=== PATIENT | male | born 1950 | race African-American/Black ===

== ENCOUNTER 2017-12-16 11:52 | Outpatient (CLI) | payer MEDICARE, MEDICAID ==
--- NOTE | 2017-12-16 14:56 | MRI ---
MRI LUMBAR SPINE WITHOUT CONTRAST: 12/16/17 HISTORY: M54.16 - radiculopathy lumbar region. Pain. T89.4 - chronic pain syndrome. COMPARISON: None. FINDINGS: There is Modic type I end plate changes at L4 and L5 and S1. Levels are as follows: L1-2: Normal discs. No neural foraminal or spinal canal narrowing. L2-3: Normal discs. Mild facet arthrosis. No neural foraminal or spinal canal narrowing. L3-4: Mild disc desiccation. There is mild facet arthrosis. No neural foraminal or spinal canal narro wing. L4-5: Mild disc desiccation. There are bilateral low grade femoral and posterior disc osteophyte comp krish. Moderate bilateral neural foraminal narrowing. Mild facet arthrosis. L5-S1: There is anterior annular fissure. There is moderate facet arthropathy. Bilateral subforamina l posterior disc osteophyte complexes. There is also a left paracentral and lateral recess posterior disc protrusion with edema deep to the posterior longitudinal ligament. There appears to be a large a nterior osteophyte complex at L5-S1. Anterior annular fissure is present. IMPRESSION: Abnormal anterior epidural edema at L5-S1 with posterior disc osteophyte complex and left paracentral posterior disc protrusion. Anterior annular fissure also present. There is also extensive anterior e xuan at L5 vertebral body. Underlying discitis/osteomyelitis felt less likely. There is moderate to s evere bilateral L5-S1 degenerative neural foraminal narrowing due to posterior disc osteophyte comple xes and facet arthrosis including abutment of the exiting and traversing nerve roots. POS: BETH
== END 2017-12-16 11:53 | disposition home or self-care (01) ==
LOC: MRI 11:52
DX: M54.16 Radiculopathy, lumbar region (principal); G89.4 Chronic pain syndrome; M51.37 Other intervertebral disc degeneration, lumbosacral region; M99.83 Other biomechanical lesions of lumbar region; M47.897 Other spondylosis, lumbosacral region; M25.78 Osteophyte, vertebrae; R60.0 Localized edema; Z79.899 Other long term (current) drug therapy
CPT/HCPCS: 72148

== ENCOUNTER 2018-09-18 17:58 | Inpatient (IN) | payer MEDICARE, MEDICAID ==
[~2018-09-18 17:58] MED LIST: ISOVUE-370 76%-LOCM 1 ML ONE
--- NOTE | 2018-09-18 18:39 | RAD ---
Exam:Right hip 2 views HISTORY: Pain. COMPARISON: 12/24/2005 FINDINGS: The contour of the femoral head is maintained. Joint spaces preserved. There appears to be bony hypertrophy at the greater trochanter. Findings may be due to remote injury or enthesopathic change. If there is focal pain in this region, further evaluation with CT or MRI can be performed. IMPRESSION: 1. No obvious fracture. 2. Irregularity involving the right greater trochanter. Recommendations as above
[2018-09-18] MEDS ORDERED: Fentanyl 100 MCG/2 ML VIAL ONE ×2 (19:12→20:44)
[2018-09-18 19:21] LABS: Hemoglobin 10.9 g/dL (14.0-18.0); Mean Corpuscular HGB CONC 30.4 g/dL (32.0-36.0); Mean Corpuscular Hemoglobin 23.5 pg (27.0-31.0); Mean Corpuscular Volume 77.2 fL (78.0-98.0); Mean Platelet Volume 7.7 fL (7.4-10.4); Platelet Count 386 thou/uL (130-400); RBC Distribution Width 16.3 % (11.5-14.5); Red Blood Cell (RBC) Count 4.65 mill/uL (4.70-6.10); White Blood Cell (WBC) Count 22.7 thou/uL (4.8-10.8)
[2018-09-18 19:42] LABS: ALT (SGPT) 7 U/L (8-55); AST (SGOT) 12 U/L (5-34); Albumin 4.1 g/dL (3.4-4.8); Alkaline Phosphatase 100 U/L (40-150); Anion Gap 16 mmol/L (10-20); BUN (Urea Nitrogen) 13 mg/dL (8.4-25.7); Bilirubin, Total 0.4 mg/dL (0.2-1.2); Calc. Creatinine Clearance 0 mL/min (70-130); Calcium 9.5 mg/dL (7.8-10.44); Carbon Dioxide 16 mmol/L (23-31); Chloride 106 mmol/L (98-107); Estimated GFR-MDRD 42; Glucose 179 mg/dL (80-115); Protein, Total 8.1 g/dL (5.8-8.1); Sodium 134 mmol/L (136-145)
[2018-09-18 19:44] LABS: Band 16 % (5-11); Lymphocytes 5 % (21-51); MDiff Complete? YES; Monocytes 2 % (0-10); Neutrophil 77 % (42-75)
--- NOTE | 2018-09-18 20:04 | CT ---
Exam: CT angiogram of the abdominal aorta with bilateral lower extremity runoff HISTORY: Right-sided hip pain. Possible occult right hip fracture. Cold foot. Evaluate for vascular o cclusion. TECHNIQUE: CT angiogram of the abdominal aorta and bilateral extremity runoff is performed in the axi al plane. Three-dimensional reformatted images are submitted for interpretation. FINDINGS: Abdomen CT: Lung bases are clear. Normal heart size. There is appropriate arterial phase enhancement of the liver, spleen, pancreas and adrenal glands. Up per normal pancreatic duct is unchanged. Symmetric enhancement kidneys. Bilaterally no obstructive uropathy. No gastrohepatic, retrocrural or periportal lymphadenopathy. No mesenteric mass, lymphadenopathy, free air or free fluid. Limited evaluation of the alimentary canal due to lack of oral contrast. Slightly prominent proximal small bowel loops are noted. Distal small bowel loops are decompressed. Ileocecal junction is unremarkable. Normal caliber appendix. Diverticulosis in the left hemicolon, without evidence of dive rticulitis. CT PELVIS: There is complex fluid in the pelvis with attenuation coefficient of 26 Hounsfield units. Unremarkable urinary bladder. There are no acute abnormalities with regards to the osseous structures. There are chronic changes in volving the right greater trochanter compared to the most recent previous CT angiogram with bilateral lower extremity runoff. CT angiogram of the aorta: There is a nonaneurysmal descending thoracic aorta. There is atheroscleros is with a combination of calcified and noncalcified plaque in the abdominal aorta. The aortic bifurcation is unremarkable. There is atherosclerosis with short segment moderate stenosis involving the celiac artery origin. The superior mesenteric artery is patent. There is a single right and 2 left renal arteries, which are patent. Mild atherosclerosis in the larger left renal artery origin. T here is nonvisualization of the proximal inferior mesenteric artery. There was opacification of the previous examination. Significant stenosis of the proximal inferior mesenteric artery is suspected. Atherosclerosis of both common iliac arteries without evidence of high-grade occlusion. There is athe rosclerosis in proximal bilateral external iliac arteries with mild right and moderate left narrowing. There is complete occlusion of the right external iliac artery just prior to its exiting the inguinal region. There does appear to be recanalization at the level of the common femoral artery via collateral flow. There is atherosclerosis with moderate narrowing of the right common femoral artery. Right lower extremity: Atherosclerosis of the right common femoral artery. There is short segment mil d narrowing of the proximal superficial femoral artery. Multi segmented mild narrowing is noted throughout the right superficial femoral artery and popliteal artery. There is occlusion of the dista l popliteal artery at the level of the knee. There does appear to be partial opacification of the peroneal and posterior tibial artery, via collateral flow. Evaluation of the peroneal and posterior t ibial artery is limited. Multifocal short segment disease is suspected. Left lower extremity: There is complete occlusion of the left common femoral artery. The left profund a femoral artery demonstrates multisegment moderate stenosis distally. There is an occluded stent along the course of the left superficial femoral artery. There is recanalization with evidence of bel w in a short segment of the popliteal artery. There is long segment moderate narrowing just beyond this area of recanalization. There is patency of the left popliteal artery. Arterial calcification is patent. The intervertebral artery does not demonstrate any significant opacification. There is multifocal disease involving the peroneal artery and posterior tibial artery. IMPRESSION: 1. Extensive atherosclerotic disease involving the left and right lower extremity as described above. Consultation with vascular surgery/cardiology is recommended to perform a conventional runoff to further assess overall degree of significant atherosclerotic disease, vascular occlusion and stenosis in both lower extremities. 2. No evidence of opacification with regards to the proximal aspect of the inferior mesenteric artery . There does not appear to be any edema in the bowel along the inferior mesenteric artery distribution. However, there do appear to be dilated loops of proximal small bowel with bowel wall t hickening. Correlate for enteritis. 3. Complex fluid in the pelvis which is atypical for a male patient 4. Chronic changes in the right greater trochanter. Transcribed Date/Time: 09/18/2018 8:30 PM
[2018-09-18 20:07] LABS: INR-International Normal Ratio 1.1
[2018-09-18 20:24] LABS: PTT 20.4 SEC (22.9-36.1)
[2018-09-18 21:19] LABS: Bilirubin Negative (Negative); Blood, Urine Negative (Negative); Clarity Clear (Clear); Glucose, Urine (Dipstick) Normal (Negative); Leukocyte Negative Leu/uL (Negative); Nitrite Negative (Negative); Protein, Urine (Dipstick) 20 mg/dL (Neg-Trace); Urobilinogen Normal mg/dL (Less than 2)
[2018-09-18 23:09] LABS: #Monocytes 0.7 thou/uL (0.11-0.59); #Neutrophils 18.8 thou/uL (1.40-6.50); %Eosinophils 0.2 % (0.0-10.0); %Lymphocytes 4.9 % (21.0-51.0); %Monocytes 3.4 % (0.0-10.0); %Neutrophils 91.4 % (42.0-75.0); Hemoglobin 10.4 g/dL (14.0-18.0); Mean Corpuscular HGB CONC 30.4 g/dL (32.0-36.0); Mean Corpuscular Hemoglobin 23.6 pg (27.0-31.0); Mean Corpuscular Volume 77.5 fL (78.0-98.0); Mean Platelet Volume 8.4 fL (7.4-10.4); Platelet Count 347 thou/uL (130-400); RBC Distribution Width 16.3 % (11.5-14.5); Red Blood Cell (RBC) Count 4.42 mill/uL (4.70-6.10); White Blood Cell (WBC) Count 20.5 thou/uL (4.8-10.8)
[2018-09-19] MEDS ORDERED: Piperacillin/Tazobactam 3.375 GM VIAL ONE (00:24)
[2018-09-19 01:40] LABS: Lactic Acid 1.9 mmol/L (0.5-2.2)
[2018-09-19] MEDS: Sodium Chloride 0.45% 1,000 ML IV SCH ×2 (01:45→10:02)
--- NOTE | 2018-09-19 01:51 | CON ---
DATE OF CONSULTATION: 09/18/2018 HISTORY OF PRESENT ILLNESS: I was called to see Mr. Dale this evening with the report he was having acute leg ischemic pain. He has a history of left leg intervention in 2017 with superficial femoral and popliteal artery angioplasty and stenting. On my arrival, the patient is watching television, propped up on the stretcher with his major complaint being no one has let him to have anything to drink since he has been there. When questioned on his current situation and why he came to the emergency department, he states that he has had pain for over 2 months in his right leg. When asked where in his right leg, he points to his hip, ankle, and occasionally to his calf. He has had no temperature change in his leg. His left leg is the limiting factor on his walking distance of approximately 2 blocks. He has no true rest pain. He has had no tissue loss. CT angiogram was performed prior to my arrival. This shows aorta and iliac vessels to be fairly clear. There is one area of the left common iliac artery that has some atherosclerosis, but it is non-flow limiting. On the left, the common femoral is widely patent. Superficial femoral is occluded just distal to its takeoff. It reconstitutes below the knee via profunda collaterals. The runoff is difficult to ascertain on the CT angiogram. On the right, the common femoral artery is occluded for a very short segment at the inguinal ligament. There is good superficial femoral, profunda, popliteal flow down to below the knee, but again runoff is difficult to ascertain due to contrast limit. The patient continues to smoke approximately a pack of cigarettes a day. He is not taking any medications at home on a regular basis. He has had no followup with Dr. Parks since 2017, due to the patient's not feeling it was necessary to come in. PAST MEDICAL HISTORY: Peripheral vascular disease. PAST SURGICAL HISTORY: Left hand surgery. HOME MEDICATIONS: None. ALLERGIES: NONE. SOCIAL HISTORY: He smokes a pack of cigarettes a day. He drinks alcohol daily. He has some obvious encephalopathy. REVIEW OF SYSTEMS: Not performed other than as above. PHYSICAL EXAMINATION: GENERAL: This is a thin elderly appearing gentleman, resting comfortably in the emergency department. VITAL SIGNS: His pulse is 60 and regular. He has sinus rhythm on the monitor. He has no history of atrial fibrillation. Blood pressure is 130/72. HEENT: Sclerae nonicteric. NECK: Supple without adenopathy. He has no carotid bruits. CHEST: Clear bilaterally. HEART: Rhythm is regular without murmur. ABDOMEN: Soft and nontender. EXTREMITIES: Equal in temperature bilaterally. On the left common femoral artery, pulses palpable. He has a soft monophasic posterior tibial Doppler signal. On the right, I cannot palpate his femoral pulse. Posterior tibial pulse has a soft monophasic Doppler signal. ASSESSMENT AND PLAN: This is a chronic peripheral vascular problem. He does not need to be admitted to the hospital nor undergo any acute therapy. I will have him follow up at the soonest available time with Dr. Parks. He will more than likely have discussion with him regarding his right common femoral artery since that maybe the inflow issue with his right leg. On the left side, he would require a fem below-knee popliteal bypass, but I am not sure if that is indicated at this point. Job ID: [id number] MTDD
[2018-09-19 02:34] VITALS: BMI 22.8
[2018-09-19] MEDS ORDERED: diphenhydrAMINE 25 MG CAP PO SCH (02:45)
[2018-09-19] MEDS ORDERED: Ondansetron PF 4 MG/2 ML Vial IVP PRN (02:46)
[2018-09-19] MEDS ORDERED: HYDROcodone/Acetaminophen 5/325 mg Tablet PO PRN ×5 (02:46→17:00)
[2018-09-19] MEDS ORDERED: Ondansetron ODT 4 MG TAB SL PRN (02:46)
[2018-09-19] MEDS: Piperacillin/Tazobactam 3.375 GM in Sodium Chloride 0.9% 100 ML IVPB SCH ×3 (05:09→18:16)
[2018-09-19] MEDS ORDERED: Lisinopril 20 MG TAB PO SCH ×2 (15:00→19:45)
[2018-09-19] MEDS: cloNIDine 0.1 MG TAB PO PRN (19:50)
--- NOTE | 2018-09-19 21:48 | HP ---
CHIEF COMPLAINT: Right leg pain. HISTORY OF PRESENT ILLNESS: Mr. Dale is a 68-year-old male with past medical history for peripheral vascular disease, hepatitis C, hypertension, came because of right leg pain, sudden onset of 2 days. The patient also had this pain going from right hip to right knee as well as the calf area. Pain was severe and was unable to ambulate because of the pain. Also noticed he had diarrhea. He had a lactose intolerance and had watery stools. In the right leg, he felt like it is cold and there is no circulation in the leg and the pain gets worse on ambulation. So, the patient decided to come to the hospital because of severe pain in the right leg, also had diarrhea. In the ER, the patient was evaluated initially, thought to have acute ischemia of the right leg, so Vascular Surgery was consulted. The patient is seeing Dr. Skaggs and he felt the patient has chronic disease in both legs and needs a followup as an outpatient. In view of his possible enteritis and also there is some fluid in the pelvis on CT scan with leukocytosis, the patient is admitted for further evaluation and management. The patient was given a dose of vancomycin and Zosyn. The ER physician felt that complex fluid in the pelvis could be abscess, so that is the reason for admission and further evaluation. The patient does not have any fever. PAST MEDICAL HISTORY: 1. Hypertension. 2. Peripheral vascular disease. 3. History of hepatitis C, treated passively. 4. Status post left hand surgery. CURRENT MEDICATIONS: The patient is on: 1. Lisinopril 20 mg daily. 2. Plavix 75 mg daily. 3. Aspirin 81 mg daily. ALLERGIES: NKDA. FAMILY HISTORY: Nothing contributory. SOCIAL HISTORY: The patient lives alone. Smokes one pack a day and drinks alcohol almost daily. REVIEW OF SYSTEMS: CARDIOVASCULAR: No chest pain. No shortness of breath. RESPIRATORY: No fever or cough. GASTROINTESTINAL: Has diarrhea and watery stools. No vomiting. CENTRAL NERVOUS SYSTEM: No headache or dizziness. PHYSICAL EXAMINATION: GENERAL: The patient is alert, awake, oriented x3. VITAL SIGNS: Temp 98, pulse 87, respirations 20, blood pressure 130/70. HEENT: Head is normocephalic and atraumatic. Pupils are equal and reactive. Nasopharynx is pale and dry. Hard and soft palate, no lesions. Skin turgor decreased. NECK: Supple. No JVD. LUNGS: Bilateral air entry. No rales. No rhonchi. HEART: S1 and S2 regular. ABDOMEN: Soft. No distention. No tenderness. No organomegaly. Bowel sounds present. RECTAL: Deferred. CENTRAL NERVOUS SYSTEM: No focal deficit. LABORATORY DATA: CBC shows WBC 22.7, hemoglobin 10, hematocrit 35, platelets 386. Metabolic panel; sodium 134, potassium 4, chloride 106, CO2 16, BUN 13, creatinine 1.9, glucose 179. Lactic acid 4.7. Prothrombin time 14, INR 1. Urinalysis negative. IMAGING STUDIES: Chest x-ray negative. Hip x-ray negative. CT angio had bilateral runoff revealed peripheral vascular disease and complex fluid in the pelvis. ASSESSMENT: 1. Peripheral vascular disease, right leg pain. 2. Leukocytosis and complex fluid in the pelvis, rule out infection. 3. Enteritis. 4. Hypertension. 5. Hepatitis C, treated. PLAN: 1. Vital signs q.4 hours. 2. Activities as tolerated. 3. Diet, regular. 4. Allergies, NKDA. 5. Zosyn 3.375 g IV piggyback q.6 hours. 6. Continue home medications. 7. CBC basement in the morning. 8. CT scan of the abdomen and pelvis in a.m. Job ID: [id number]
[2018-09-20] MEDS: Piperacillin/Tazobactam 3.375 GM in Sodium Chloride 0.9% 100 ML IVPB SCH ×4 (00:02→17:09)
[2018-09-20 06:51] LABS: Anion Gap 9 mmol/L (10-20); BUN (Urea Nitrogen) 10 mg/dL (8.4-25.7); Calc. Creatinine Clearance 71 mL/min (70-130); Calcium 8.4 mg/dL (7.8-10.44); Carbon Dioxide 21 mmol/L (23-31); Chloride 110 mmol/L (98-107); Estimated GFR-MDRD 81; Glucose 98 mg/dL (80-115); Potassium 3.6 mmol/L (3.5-5.1); Sodium 136 mmol/L (136-145)
[2018-09-20] MEDS: Aspirin 81 mg Enteric Coated Tablet PO SCH (08:39)
[2018-09-20] MEDS: Clopidogrel Bisulfate 75 MG TAB PO SCH (08:39)
[2018-09-20 08:56] LABS: #Eosinphils 0.3 thou/uL (0.0-0.7); #Lymphocytes 2.9 thou/uL (1.20-3.40); #Monocytes 0.8 thou/uL (0.11-0.59); #Neutrophils 5.4 thou/uL (1.40-6.50); %Basophils 0.3 % (0.0-1.0); %Eosinophils 3.1 % (0.0-10.0); %Lymphocytes 30.7 % (21.0-51.0); %Monocytes 8.3 % (0.0-10.0); %Neutrophils 57.6 % (42.0-75.0); Hemoglobin 7.9 g/dL (14.0-18.0); Mean Corpuscular HGB CONC 30.1 g/dL (32.0-36.0); Mean Corpuscular Hemoglobin 23.8 pg (27.0-31.0); Mean Corpuscular Volume 79.1 fL (78.0-98.0); Mean Platelet Volume 8.1 fL (7.4-10.4); Platelet Count 261 thou/uL (130-400); RBC Distribution Width 16.1 % (11.5-14.5); Red Blood Cell (RBC) Count 3.32 mill/uL (4.70-6.10); White Blood Cell (WBC) Count 9.4 thou/uL (4.8-10.8)
[2018-09-20] MEDS ORDERED: Lisinopril 20 MG TAB PO SCH (09:00)
--- NOTE | 2018-09-20 09:36 | CT ---
EXAM: Abdomen and pelvic CT scan with contrast: HISTORY: Right hip pain, abdominal pain, diarrhea, follow-up pelvic fluid COMPARISON: CT angiogram abdomen, 09/18/2018 FINDINGS: The previously noted fluid in the pelvis on the prior CT angiogram of the abdomen is no longer eviden t on today's study. Minimal right pleural fluid/pleural thickening. Liver: Unremarkable. Gallbladder:Small contracted gallbladder. Pancreas:Unremarkable Spleen:Unremarkable. Adrenal glands:Unremarkable. Kidneys:No renal calculus or acute obstruction.No solid or cystic mass. No evidence for bowel obstruction. No CT evidence for acute appendicitis. The urinary bladder is unremarkable. No abscess, adenopathy, or abnormal fluid collection within the abdomen or pelvis. IMPRESSION: No significant acute process in the abdomen or pelvis. Small right pleural effusion/pleural thickenin g. Previously noted fluid in the pelvis seen on prior CT angiogram of the abdomen is no longer evident on today's study.
[2018-09-20 10:57] LABS: Amphetamine Not Detected (NotDetected); Barbiturates Screen Not Detected (NotDetected); Benzodiazepine Screen Not Detected (NotDetected); Cocaine Metabolite Screen Detected (NotDetected); Medtox Control Line Valid? VALID (VALID); Medtox Reader # READER 4; Methadone Not Detected (NotDetected); Methamphetamine Not Detected (NotDetected); Opiate Screen Detected (NotDetected); Oxycodone Screen Not Detected (NotDetected); Phencyclidine (PCP) Not Detected (NotDetected); THC/Cannabinoid Screen Not Detected (NotDetected); Tricyclic Screen Not Detected (NotDetected)
--- NOTE | 2018-09-20 19:09 | CON ---
DATE OF CONSULTATION: 09/20/2018 REASON FOR CONSULTATION: Neutrophilia, peripheral vascular disease, diarrhea. HISTORY OF PRESENT ILLNESS: A 68-year-old patient. Last admission in the hospital is registered for October 2016, when the patient presented with left hand weakness and numbness. MRI did not show an infarct. In November 2016, the patient had abdominal aortogram, which showed mild aortoiliac disease with no plaquing, diffuse disease in the left superficial femoral artery with occlusion of the proximal 3rd and reconstitution at the popliteal artery. The patient states that he had a balloon with stent to the left lower extremity by Dr. Parks, but I do not find the documentation of that procedure in the record. He also has a history of hepatitis C, which may have been treated, hypertension, and he has had intermittent claudication for the past year, and over the past few days, developed worsening pain in the right lower extremity associated with numbness and inability to bear weight. He was brought to the hospital by EMS and has been admitted. The pain has improved since. He was evaluated by Dr. Skaggs, and he had a CT angio with runoff on 09/18, and this demonstrated extensive disease in the left and right lower extremity. There was no evidence of opacification in the proximal aspect of the inferior mesenteric artery, and also a complex fluid was described in the pelvis. The patient had a repeat abdomen and pelvis CT to evaluate the fluid in the pelvis, and this showed no abnormal findings, so we did not confirm the serendipitous CT angiogram finding. The patient had some diarrhea, which he blames on drinking milk with cereal a few days before, since he has lactose intolerance. Currently, he is awake. Denies headaches. No visual symptoms, sore throat, odynophagia, or dysphagia. No cough or sputum production. No chest pain. No dental pain. No back pain. No abdominal pain and voiding without difficulty, still with some loose stool intermittently. The pain in lower extremities has improved. He is able to bear weight. PAST MEDICAL HISTORY: Peripheral vascular disease; hypertension; hepatitis C, which apparently was treated; left hand surgery. MEDICATION LIST: Lisinopril, Plavix, and aspirin. Currently, 1. [place]. 2. Ecotrin. 3. Catapres. 4. Plavix. 5. Zestril. 6. Zosyn. ALLERGIES: NONE. FAMILY HISTORY: Noncontributory. SOCIAL HISTORY: Still smoking and drinks daily alcoholic beverages. He used to work in construction up until 2017. PHYSICAL EXAMINATION: VITAL SIGNS: T-max 98.2, blood pressure 170/73, pulse 58, respirations 18, O2 saturation 97. SKIN: No areas of skin breakdown. The patient has a peripheral IV access and is voiding in the toilet. No lymphadenopathy. HEENT: Ocular movements conjugate. Sclerae white. Pupils are equal. Oral cavity with no remaining [place] teeth in place. NECK: Supple. No jugular vein distention. No carotid bruits. LUNGS: With expiratory wheezing, right and left hemithorax. HEART: S1 and S2. Regular rate. ABDOMEN: Soft, not distended or tender. No ascites. No bladder distention. EXTREMITIES: No joint inflammatory activity. I could not feel any popliteal or dorsalis pedis/posterior tibialis pulses in either extremity. Plantar responses are flexor. Strength is preserved in the lower extremities and upper extremities. Cognitive function appears to be intact. LABORATORY DATA: White cell count 22.7, down to 9.4; hemoglobin down from 10.9 to 7.9; MCV 79, and platelets 261 with a normal differential. INR 1.1. Creatinine 1.1, which is improved from admission. Urinalysis was normal. The toxicology with some cocaine metabolites. Microbiology with two sets out of two with coagulase negative Staph likely contaminant of the sample joint process. ASSESSMENT: 1. Peripheral vascular disease with prior intervention, left side, now with intermittent claudication for about a year now with worsening pain and inability to ambulate for the three days before admission. The amount of obstruction and the clinical findings were deemed to not require emergency intervention by vascular surgeon. The patient has been referred to Dr. Parks in the outpatient setting. 2. Marked neutrophilia with bandemia of unclear etiology. 3. Abnormal lung exam. DISCUSSION: The differential diagnosis includes the acute ischemia of lower extremities, which led to probably severe ischemia of the muscles, which was transient and improved over time. This must have had re-precautions in terms of release of cytokine as that caused the leukocytosis with left shift. The clinical exam and the CT scan of the abdomen argue against an acute intraabdominal ischemic event such as ischemic colitis for example. He is at risk for such in the future. He does have mild wheezing in the right and left lungs, probably related to his ongoing smoking habit and underlying chronic bronchitis. I do not think there is enough evidence to suggest an infection in the respiratory tract. At this point, we will discontinue antimicrobial therapy and follow clinical course. He does have a quite significant drop in the hemoglobin, and we will have to continue monitoring and make sure that it stabilizes prior to discharge planning. He may display gastrointestinal hemorrhage going forward. We will see how he does. Job ID: [id number]
[2018-09-20] MEDS: Lisinopril 20 MG TAB PO SCH ×3 (21:00→23:36)
[2018-09-21] MEDS: cloNIDine 0.1 MG TAB PO PRN ×3 (01:07→23:53)
--- NOTE | 2018-09-21 01:36 | CON ---
DATE OF CONSULTATION: 09/20/2018 REQUESTING PHYSICIAN: Michael Sena MD REASON FOR CONSULTATION: Possible pelvic phlegmon on CT scan. HISTORY OF PRESENT ILLNESS: Hayden Dale is a 68-year-old man with a history of tobacco abuse and severe peripheral vascular disease. He was seen in the GI outpatient setting by my colleague, Dr. Dallin Dumas in the past. He had a colonoscopy just a couple of years ago in 2017 showing left-sided diverticulosis and a single small polyp removed at that time. He has a history of hepatitis C genotype 1 and genotype 4, and received 12 weeks of Epclusa in late 2016, but was lost to follow up after that and did not really present for any of the followup labs. He has no chronic gastrointestinal symptoms. He presented to the hospital and was admitted yesterday initially with concern for acute arterial ischemia of the right lower extremity. He was seen by Dr. Skaggs, whose impression was that there was no urgent intervention needed and that this was more of a chronic vascular problem. He had a CT angiogram with runoff performed on admission 2 nights ago, and this was notable for extensive atherosclerotic disease of the bilateral lower extremities. No opacification of the inferior mesenteric artery, though there was no edema in the bowel along that distribution. There was some proximal small bowel wall thickening. There was also some complex fluid in the pelvis. The patient underwent repeat CT of the abdomen and pelvis this morning, and this really showed no acute abnormalities. There was no pelvic fluid collection evident on today's exam, no evidence of bowel inflammation or obstruction. The patient denies any abdominal pain, nausea, or vomiting. He is tolerating his regular diet well. He does say that over the past 3 to 4 days, he has been having diarrhea. He describes this as dark stool with no red blood. He has had about 7 bowel movements today. He has been hemodynamically stable. Labs this morning did show a downtrend in hemoglobin from 10.4 on admission down to 7.9. This is in conjunction with significant decline in WBC and platelets as well. PAST MEDICAL HISTORY: 1. Hypertension, peripheral vascular disease, hepatitis C, genotype 1 and 4, treated with 12 weeks of Epclusa in January 2017, lost to follow up since then. 2. Status post left hand surgery. 3. Left-sided diverticulosis. 4. Colon polyp, removed on colonoscopy 2016. OUTPATIENT MEDICATIONS: 1. Lisinopril. 2. Plavix. 3. Aspirin 81 mg daily. ALLERGIES: NO KNOWN DRUG ALLERGIES. FAMILY HISTORY: Noncontributory. SOCIAL HISTORY: The patient lives alone. He continues to smoke 1 pack a day and he drinks alcohol almost daily. REVIEW OF SYSTEMS: The patient states that his leg is currently feeling a lot better. It is warm to the touch. Otherwise, full review of systems including constitutional, head, eyes, ears, nose, throat, GI, , cardiovascular, respiratory, musculoskeletal, neurologic systems is negative except as noted in the HPI. PHYSICAL EXAMINATION: VITAL SIGNS: Temperature 98.4, pulse 61, blood pressure 160/76, oxygen saturation 97% on room air. GENERAL: A 68-year-old man sitting up in bed comfortably, in no distress. SKIN: A bit pale. No jaundice. No rashes were palpable. EYES: No scleral icterus. Extraocular movements intact. ENT: Mucous membranes moist. No oral lesions. LYMPH: No submandibular or supraclavicular lymphadenopathy. ENDOCRINE: Thyroid nontender to palpation. HEART: Regular rate and rhythm. LUNGS: Clear to auscultation bilaterally. ABDOMEN: Flat. Bowel sounds present. Soft and nontender to deep palpation throughout the abdomen. No guarding or rebound tenderness. EXTREMITIES: No peripheral edema. The lower extremities are warm to the touch. NEUROLOGIC: Cranial nerves 2 through 12 intact bilaterally. No focal deficits. LABORATORY STUDIES: Hemoglobin initially 10.9, now down to 7.9, WBC initially 22.7, now down to 9.4, platelets initially 386, now down to 261. INR is 1.1. Sodium 136, potassium 3.6, BUN only 10, creatinine initially 1.95, now down to 1.1. Lactic acid initially 4.7, now down to 2.0. CRP 1.21. IMAGING STUDIES: Initial CT angiogram from 09/18/2018, as well as repeat CT of the abdomen and pelvis 09/20/2018 as detailed in the HPI. ASSESSMENT AND PLAN: 1. Abnormal CT scan, showing possible pelvic fluid collection. This was demonstrated on initial CT scan on 09/18/2018. However, repeat CT scan from this morning demonstrated no pelvic fluid collection. This is either a very transient process, or more likely, imaging artifact. The patient certainly has no lower abdominal discomfort. No evidence of acute abdomen. 2. Acute diarrhea. This has been going on over the past 3 to 4 days. It likely represents acute viral infectious gastroenteritis. Expect resolution over the next couple of days. There was suggestion of some proximal small bowel enteritis on the initial scan not as evident on the repeat scan. 3. Anemia. He has had significant hemoglobin decline from 10.4 to 7.9 over the course of this admission. However, he has had no evidence of overt bleeding. He does say the stools are a bit dark, however. We would stick with the plan to monitor H and H tomorrow. If significant further decline, then EGD could be considered. 4. History of hepatitis C, status post treatment with Epclusa x12 weeks in late 2017. The patient failed to follow up outpatient for this. He can follow up on an outpatient basis with Dr. Dumas for repeat viral load, etc. Thank you for the consultation. Please call anytime with questions or concerns. Job ID: [id number]
[2018-09-21 05:58] LABS: #Eosinphils 0.4 thou/uL (0.0-0.7); #Lymphocytes 3.3 thou/uL (1.20-3.40); #Monocytes 0.7 thou/uL (0.11-0.59); #Neutrophils 4.4 thou/uL (1.40-6.50); %Basophils 0.3 % (0.0-1.0); %Eosinophils 4.4 % (0.0-10.0); %Lymphocytes 37.9 % (21.0-51.0); %Monocytes 7.4 % (0.0-10.0); %Neutrophils 50.1 % (42.0-75.0); Hemoglobin 7.8 g/dL (14.0-18.0); Mean Corpuscular HGB CONC 30.2 g/dL (32.0-36.0); Mean Corpuscular Hemoglobin 23.3 pg (27.0-31.0); Mean Corpuscular Volume 77.3 fL (78.0-98.0); Mean Platelet Volume 7.7 fL (7.4-10.4); Platelet Count 243 thou/uL (130-400); RBC Distribution Width 15.8 % (11.5-14.5); Red Blood Cell (RBC) Count 3.32 mill/uL (4.70-6.10); White Blood Cell (WBC) Count 8.8 thou/uL (4.8-10.8)
[2018-09-21 06:23] LABS: Anion Gap 11 mmol/L (10-20); BUN (Urea Nitrogen) 8 mg/dL (8.4-25.7); Calc. Creatinine Clearance 80 mL/min (70-130); Calcium 8.2 mg/dL (7.8-10.44); Carbon Dioxide 20 mmol/L (23-31); Chloride 109 mmol/L (98-107); Estimated GFR-MDRD Greater than 90; Glucose 85 mg/dL (80-115); Iron 21 ug/dL (65-175); Iron Binding Capacity, Total 344 mcg/dL (261-462); Potassium 3.8 mmol/L (3.5-5.1); Sodium 136 mmol/L (136-145)
[2018-09-21] MEDS: Lisinopril 20 MG TAB PO SCH ×2 (08:34→19:35)
[2018-09-21] MEDS: Aspirin 81 mg Enteric Coated Tablet PO SCH (08:34)
[2018-09-21] MEDS: Clopidogrel Bisulfate 75 MG TAB PO SCH (08:34)
[2018-09-21] MEDS: Hydrochlorothiazide 25 MG TAB PO SCH (19:35)
[2018-09-21] MEDS ORDERED: HYDROcodone/Acetaminophen 5/325 mg Tablet PO PRN (19:53)
[2018-09-22 04:59] LABS: #Basophils 0.1 thou/uL (0.0-0.2); #Eosinphils 0.4 thou/uL (0.0-0.7); #Lymphocytes 3.1 thou/uL (1.20-3.40); #Monocytes 0.6 thou/uL (0.11-0.59); #Neutrophils 5.1 thou/uL (1.40-6.50); %Basophils 0.9 % (0.0-1.0); %Eosinophils 3.8 % (0.0-10.0); %Lymphocytes 33.6 % (21.0-51.0); %Monocytes 6.7 % (0.0-10.0); %Neutrophils 54.9 % (42.0-75.0); Hemoglobin 7.9 g/dL (14.0-18.0); Mean Corpuscular Hemoglobin 22.9 pg (27.0-31.0); Mean Corpuscular Volume 76.6 fL (78.0-98.0); Mean Platelet Volume 8.3 fL (7.4-10.4); Platelet Count 263 thou/uL (130-400); RBC Distribution Width 15.8 % (11.5-14.5); Red Blood Cell (RBC) Count 3.42 mill/uL (4.70-6.10); White Blood Cell (WBC) Count 9.3 thou/uL (4.8-10.8)
[2018-09-22] MEDS: Aspirin 81 mg Enteric Coated Tablet PO SCH (08:03)
[2018-09-22] MEDS: Lisinopril 20 MG TAB PO SCH (08:10)
[2018-09-22] MEDS: Hydrochlorothiazide 25 MG TAB PO SCH (08:10)
[2018-09-22] MEDS: Clopidogrel Bisulfate 75 MG TAB PO SCH (08:10)
--- NOTE | 2018-09-22 09:49 | PRG ---
DATE OF SERVICE: 09/21/2018 SUBJECTIVE: Mr. Dale is without any pain today. He notes his blood count has gone down. He has been able to get up. Walking okay. He is eating okay. He denies any melena, black tarry stools, rectal bleeding, or vomiting any blood. MEDICATIONS: 1. Aspirin. 2. Clonidine. 3. Plavix. 4. Hydrochlorothiazide. 5. Zestril. OBJECTIVE: VITAL SIGNS: Pulse 54, temperature is 97, and blood pressure 169/74. ABDOMEN: Soft, nontender, slightly protuberant. There is no shifting dullness. There is no fluid wave. LABORATORY DATA: Hemoglobin 7.8, 10.9 on admission; MCV 73, is normal back in 2017; and platelets were 243. Urine drug screen was positive by Dr. Sena, cocaine and opiates on admission. Alcohol level is not checked as he just continues to drink. Microbiology. Blood cultures coag-negative staph. Hemoccult, negative. ASSESSMENT: 1. Liver disease, possible underlying cirrhosis, status post hep C treatment. He does continue to drink alcohol. 2. Admitted with questionable phlegmon or inflammation in his lower abdomen. He initially came in for right leg pain and there is a question about possible phlegmon in the abdomen and underwent followup CAT scan. This showed no phlegmon in the abdomen. 3. Anemia, microcytic. He has had a colonoscopy just two years ago with a small polyp removed. This may be related to chronic blood loss from Plavix. He could have portal hypertension. He could have a gastric lesion. RECOMMENDATIONS: 1. EGD tomorrow. 2. Continued alcohol abuse. I have recommended the patient not to drink alcohol due to underlying liver disease. He may get decompensated cirrhosis of which there is not going to be a cure for him. Job ID: [id number]
[2018-09-22] MEDS ORDERED: Ondansetron HCl/PF 4 MG/2 ML Vial IVP PRN (15:10)
[2018-09-22] MEDS ORDERED: Iron, Sodium Ferric Gluconate 250 MG in Sodium Chloride 0.9% 100 ML IVPB SCH (15:30)
[2018-09-22 16:16] VITALS: BP 142/72; TEMP 97.6
[2018-09-22] MEDS ORDERED: PROPOFOL 200 MG/20 ML VIAL ONE (16:34)
[2018-09-22] MEDS ORDERED: Lidocaine 1% PF 5 ML VIAL ONE (16:34)
--- NOTE | 2018-09-23 09:06 | OP ---
DATE OF PROCEDURE: 09/22/2018 PROCEDURE PERFORMED: Esophagogastroduodenoscopy. PREPROCEDURE DIAGNOSES: 1. Anemia of unclear etiology. 2. Hemoccult stool negative. 3. History of hepatitis C and substance abuse, concern for possible portal hypertension. 4. Normal colonoscopy except for a few polyps on 09/18/2016. POSTPROCEDURE DIAGNOSIS: Normal esophagogastroduodenoscopy. RECOMMENDATIONS: 1. IV iron supplementation. 2. PPI. 3. We will follow from distance. ANESTHESIA: TIVA. PROCEDURE IN DETAIL: The patient was informed of the risk, benefits, and possible complications of endoscopy including perforation, reaction to medication, and aspiration. Informed consent was obtained, and the patient was brought to endoscopy suite, where he was sedated in standard fashion. Once he was comfortable, a bite block was placed inside the orifice. The endoscope was advanced through the esophagus, stomach, and second and third portions of the duodenum and slowly removed. There was good visualization of the mucosa. There were no mass lesions or AV malformations. There were no polyps or masses seen. There was no ulcers, erosions, or varices. The duodenum showed no stools, blunting, scalloping of folds, or erosions. The stomach was normal sensibility in forward and retroflexed views. The esophagus was normal. The scope was removed. The patient tolerated the procedure well. There were no complications. Job ID: [id number]
[2018-09-24 12:09] LABS: Hep C PCR-Quant HCV Not Detected IU/mL (.)
--- NOTE | 2018-09-25 11:40 | EKG ---
Test Reason : Blood Pressure : / mmHG Vent. Rate : 058 BPM Atrial Rate : 058 BPM P-R Int : 144 ms QRS Dur : 086 ms QT Int : 440 ms P-R-T Axes : 062 057 074 degrees QTc Int : 431 ms Sinus bradycardia Possible Left atrial enlargement Left ventricular hypertrophy Abnormal ECG Confirmed by MADDIE WALDEN ([id number]), food editor ALEXIS LENTZ ([id number]) on 09/25/2018 11:39:47 AM Referred By: Confirmed By:MADDIE WALDEN
== END 2018-09-22 18:49 | disposition home or self-care (01) | DRG 301 ==
LOC: ERS 17:58 → ONC 09-19 01:11 → OBSVTOIN 09-20 12:42
PROVIDERS: ADMIT Internal Medicine; ATTEND Internal Medicine
PROC: 0DJ08ZZ Inspection of Upper Intestinal Tract, Via Natural or Artificial Opening Endoscopic (ICD-10-PCS; principal; 2018-09-20)
DX: I73.9 Peripheral vascular disease, unspecified (principal); A08.4 Viral intestinal infection, unspecified; B18.2 Chronic viral hepatitis C; I10 Essential (primary) hypertension; E73.9 Lactose intolerance, unspecified; F17.210 Nicotine dependence, cigarettes, uncomplicated; D72.825 Bandemia; D64.9 Anemia, unspecified; Z79.899 Other long term (current) drug therapy
CPT/HCPCS: 36415; 74177; 75635; 80048; 80053; 80306; 81003; 82274; 82550; 82728; 83540; 83550; 83605; 84484; 85025; 85610; 85652; 85730; 86140; 87040; 87077; 87149; 87186; 87522; 93005; 94760; 96361; 96365; 96367; 96375; 96376; J2001; J2543; J2704; J2916; J3010; J3370; J3490; Q0163; Q9966

== ENCOUNTER 2019-06-01 11:48 | Inpatient (IN) | payer MEDICARE, MEDICAID ==
[~2019-06-01 11:48] MED LIST changes: +Glycopyrrolate 0.2 MG/ML 5 ML SYRINGE ONE; -ISOVUE-370 76%-LOCM 1 ML ONE; +Lidocaine 1% PF 5 ML VIAL ONE; +Ondansetron PF 4 MG/2 ML Vial ONE; +PHENYLEPHRINE-NS 100 MCG/ML 10 ML SYRINGE ONE; +PROPOFOL 200 MG/20 ML VIAL ONE; +Rocuronium Bromide 10 MG/ML (10ML VIAL) ONE; +Succinylcholine Chloride 20 MG/ML 10 ml SYRINGE FS ONE
[2019-06-01 12:40] LABS: Hemoglobin 10.7 g/dL (14.0-18.0); Mean Corpuscular HGB CONC 30.8 g/dL (32.0-36.0); Mean Corpuscular Hemoglobin 23.4 pg (27.0-31.0); Mean Platelet Volume 8.8 fL (7.4-10.4); Platelet Count 353 thou/uL (130-400); RBC Distribution Width 16.6 % (11.5-14.5); Red Blood Cell (RBC) Count 4.57 mill/uL (4.70-6.10); White Blood Cell (WBC) Count 24.4 thou/uL (4.8-10.8)
[2019-06-01] MEDS ORDERED: Ondansetron PF 4 MG/2 ML Vial ONE (12:55)
[2019-06-01] MEDS ORDERED: Morphine 4 MG/ML VIAL ONE (12:55)
[2019-06-01 12:57] LABS: ALT (SGPT) 12 U/L (8-55); AST (SGOT) 18 U/L (5-34); Albumin 4.4 g/dL (3.4-4.8); Alkaline Phosphatase 98 U/L (40-110); Anion Gap 15 mmol/L (10-20); BUN (Urea Nitrogen) 11 mg/dL (8.4-25.7); Bilirubin, Total 0.7 mg/dL (0.2-1.2); Calc. Creatinine Clearance 0 mL/min (70-130); Calcium 9.6 mg/dL (7.8-10.44); Carbon Dioxide 21 mmol/L (23-31); Chloride 101 mmol/L (98-107); Estimated GFR-MDRD Greater than 90; Globulin 3.9 g/dL (2.4-3.5); Glucose 125 mg/dL (80-115); Lipase 20 U/L (8-78); Potassium 3.6 mmol/L (3.5-5.1); Protein, Total 8.3 g/dL (5.8-8.1); Sodium 133 mmol/L (136-145)
[2019-06-01 13:11] LABS: Band 14 % (5-11); Eosinophils 1 % (0-10); Hypochromia SLIGHT = 6-15 cells (100X) (0-5/hpf); Lymphocytes 9 % (21-51); MDiff Complete? YES; Microcytosis SLIGHT = 6-15 cells (100X) (0-5/hpf); Monocytes 1 % (0-10); Neutrophil 75 % (42-75); Platelet Morphology Comment Appears Adequate; Polychromasia SLIGHT = 2-3 cells (100X) (0-2/hpf)
--- NOTE | 2019-06-01 13:39 | CT ---
CT Abdomen Pelvis W Con: 06/01/2019 12:28 PM CLINICAL INFORMATION: Bilateral lower abdominal pain COMPARISON: 09/20/2018 TECHNIQUE: Multiple contiguous axial images were obtained and a CT of the abdomen and pelvis with IV contrast. C oronal and sagittal reformats were performed. FINDINGS: Lower Chest: Calcified granuloma in the left lung base. Abdomen: Liver: within normal limits. Bile Ducts: Normal caliber. Gallbladder: No calcified gallstones. Normal caliber wall. Pancreas: within normal limits. Spleen: within normal limits. Adrenals: within normal limits. Kidneys: within normal limits. Pelvis: Reproductive Organs: No pelvic masses. Ureters: within normal limits. Bladder: within normal limits. Peritoneum: No free fluid is seen in the pelvis. Bowel: Normal caliber. The appendix is enlarged measuring 12 mm. Surrounding stranding changes are se en consistent with acute appendicitis. There appears to be an area of contained perforation where air is seen surrounding the appendix and a region measuring 3.0 cm in greatest dimension. No focal fl uid collection is seen in this location. Mesentery and Retroperitoneum: No enlarged mesenteric or retroperitoneal lymph nodes. Vessels: Atherosclerotic calcifications. Abdominal Wall: within normal limits. Bones: Degenerative changes in the spine. IMPRESSION: Perforated acute appendicitis
[2019-06-01] MEDS ORDERED: Piperacillin/Tazobactam 4.5 GM VIAL ONE (14:12)
[2019-06-01] MEDS ORDERED: Dextrose 5% in Water 1,000 ML IV PRN (14:42)
[2019-06-01] MEDS ORDERED: Dextrose 50% Abboject 50 ML SYRINGE SLOW IVP PRN (14:42)
[2019-06-01] MEDS ORDERED: Ondansetron PF 4 MG/2 ML Vial IVP PRN (14:42)
[2019-06-01] MEDS ORDERED: Acetaminophen 325 MG TAB PO PRN (14:42)
[2019-06-01] MEDS ORDERED: Promethazine HCl 25 MG/ML VIAL IM PRN (14:42)
[2019-06-01] MEDS ORDERED: Iopamidol 370 76% 100 ML VIAL ONE (14:50)
--- NOTE | 2019-06-01 14:58 | RAD ---
PORTABLE CHEST 1 VIEW: Date: 06/01/2019 Time: 1418 hours HISTORY: Abdominal pain. FINDINGS: Comparison made with exam of 08/13/2016. The heart size is normal. The lungs are well expanded without lobar consolidation, pneumothoraces, or pleural effusions. IMPRESSION: No acute process. POS: [facility]
[2019-06-01 14:59] LABS: Bilirubin Negative (Negative); Blood, Urine Negative (Negative); Clarity Clear (Clear); Glucose, Urine (Dipstick) Normal (Negative); Leukocyte Negative Leu/uL (Negative); Nitrite Negative (Negative); Protein, Urine (Dipstick) 10 mg/dL (Neg-Trace); Urobilinogen Normal mg/dL (Less than 2)
[2019-06-01 15:08] LABS: Magnesium 1.7 mg/dL (1.6-2.6); Phosphorus 3.2 mg/dL (2.3-4.7)
--- NOTE | 2019-06-01 15:37 | HP ---
REQUESTING PHYSICIAN: Hernesto Vital MD CONSULTING PHYSICIAN: Dr. Groves. ATTENDING PHYSICIAN: Dr. Groves. HISTORY OF PRESENT ILLNESS: Mr. Dale is a 68-year-old gentleman, comes to the ED for evaluation of abdominal pain. The patient reports abdominal pain started yesterday morning after the patient was eating breakfast with cereal and milk. He developed abdominal pain, nausea, and vomiting. Throughout the day since yesterday until today, the patient continued vomiting and nausea, cannot eat eating, poor appetite. The patient denies shortness of breath. Denies fever. Denies sweating. Abdominal pain got worse and became generalized. The patient has not had bowel movement for 2 days. Urination is normal. REVIEW OF SYSTEMS: Noncontributory, except per HPI. PAST MEDICAL HISTORY: Pertinent with hypertension, in which the patient takes medication regularly; coronary artery disease with stent put in 2 years ago, has not had symptoms seen, in which the patient takes Plavix every day. PAST SURGICAL HISTORY: None. SOCIAL HISTORY: The patient lives at home. Smoking history, smokes one pack a day for 40 to 50 years. Drinking, 1 to 2 drinks a day. Drug, denies drug use. ALLERGIES: TORADOL. CURRENT MEDICATIONS: 1. Losartan and hydrochlorothiazide 20/12.5 one b.i.d. 2. Plavix 75 mg once a day. 3. Amlodipine 10 mg once a day. 4. Baby aspirin once a day, but the patient currently does not take it. PHYSICAL EXAMINATION: GENERAL: The patient lying in bed, in moderate distress due to abdominal pain. SKIN: Dry and pink. No sign of respiratory distress. VITAL SIGNS: Temperature is 97, respiratory rate 20, heart rate is 80, blood pressure 180/86. LUNGS: Clear bilaterally. HEART: Regular rate and rhythm. ABDOMEN: Distended. Rebound positive. The patient guarded. Extremely pain to palpation. Bowel sounds hypoactive. EXTREMITIES: Neurovascularly intact x4. NEUROLOGY: No focal neurology deficits. LABORATORY DATA: Initial workup shows white count 24.4, hemoglobin 10.7, platelets 353. Sodium 133, potassium 3.6, creatinine 0.9, glucose 125. LFT is within normal range. IMAGING STUDIES: Abdominal CT scan show perforated acute appendicitis. ASSESSMENT: 1. Perforation, acute appendicitis. 2. History of coronary artery disease with stent. 3. Hypertension. PLAN: The patient will be admitted to [place] [id number] Groves will take the patient to the OR today for laparoscopic of perforated acute appendicitis. Laparoscopic cholecystectomy and washout for perforated acute appendicitis. The patient will have pain control, IV fluid, n.p.o. for now. After the surgery, the patient will be followed up in surgical floor, and continue pain control, DVT prophylaxis. Resume on home medication. The patient was seen and evaluated with Dr. Groves. Job ID: [id number]
[2019-06-01] MEDS ORDERED: Nicotine 14 MG PATCH TD SCH (16:00)
[2019-06-01 16:06] LABS: PTT 19.5 SEC (22.9-36.1)
[2019-06-01] MEDS ORDERED: Acetaminophen 500 MG TAB ONE (17:04)
[2019-06-01] MEDS ORDERED: Bupivacaine 0.25% HCL 30 ML VIAL ONE (18:22)
[2019-06-01] MEDS ORDERED: Lidocaine 1% w/Epinephrine 1:100K 20 ML VIAL ONE (18:23)
[2019-06-01] MEDS ORDERED: EPINEPHrine 1 MG/ML AMP ONE (18:23)
--- NOTE | 2019-06-01 18:36 | HP ---
CHIEF COMPLAINT: Right lower quadrant abdominal pain. HISTORY OF PRESENT ILLNESS: The patient is a 68-year-old gentleman, who presented to the emergency room with abdominal pain. Full history and physical examination has already been performed by GAETANO Tipton. At the time of that evaluation, it was thought that Dr. Groves would be performing the patient's appendectomy. The patient does have CT evidence of perforated appendicitis. I have assumed care of this patient. I have reviewed the CT scan, laboratory studies, history and physical examination, and performed a full physical examination. I agree with the findings of Ms. Escoto. I will proceed with a laparoscopic appendectomy as soon as time is available in the operating room. I would anticipate drain placement at the time of surgery and admission based on the appearance of a perforated disease. The patient does have increased risk because of his current use of Plavix. He is also an ongoing smoker. Job ID: [id number]
[2019-06-01] MEDS ORDERED: Fentanyl 100 MCG/2 ML VIAL ONE ×4 (18:56→22:35)
[2019-06-01] MEDS ORDERED: Ondansetron HCl/PF 4 MG/2 ML Vial IVP PRN (19:22)
[2019-06-01] MEDS ORDERED: Phenylephrine 10 MG/ML VIAL ONE (20:23)
[2019-06-01] MEDS ORDERED: Famotidine 20 MG TAB PO SCH (21:00)
[2019-06-01] MEDS ORDERED: Piperacillin/Tazobactam 3.375 GM VIAL ONE (21:10)
[2019-06-01] MEDS: Oxazepam 10 MG CAP PO SCH (23:26)
[2019-06-01] MEDS: Famotidine/PF 20 mg/2ml Vial SLOW IVP SCH (23:26)
[2019-06-01] MEDS: Lisinopril 20 MG TAB PO SCH (23:26)
[2019-06-01 23:29] VITALS: BMI 27.3
[2019-06-01] MEDS: Sodium Chloride 0.9% 1,000 ML IV SCH (23:49)
[2019-06-02] MEDS: Morphine 4 MG/ML VIAL SLOW IVP PRN ×8 (00:53→23:42)
[2019-06-02] MEDS: Sodium Chloride 0.9% 1,000 ML IV SCH ×3 (00:55→19:17)
[2019-06-02] MEDS: Piperacillin/Tazobactam 3.375 GM in Sodium Chloride 0.9% 100 ML IVPB SCH ×4 (03:45→20:47)
[2019-06-02 05:38] LABS: #Lymphocytes 1.3 thou/uL (1.20-3.40); #Monocytes 0.7 thou/uL (0.11-0.59); #Neutrophils 11.6 thou/uL (1.40-6.50); %Basophils 0.1 % (0.0-1.0); %Eosinophils 0.1 % (0.0-10.0); %Lymphocytes 9.5 % (21.0-51.0); %Monocytes 4.9 % (0.0-10.0); %Neutrophils 85.3 % (42.0-75.0); Hemoglobin 8.8 g/dL (14.0-18.0); Mean Corpuscular HGB CONC 30.3 g/dL (32.0-36.0); Mean Corpuscular Hemoglobin 23.5 pg (27.0-31.0); Mean Corpuscular Volume 77.6 fL (78.0-98.0); Mean Platelet Volume 8.8 fL (7.4-10.4); Platelet Count 310 thou/uL (130-400); RBC Distribution Width 16.7 % (11.5-14.5); Red Blood Cell (RBC) Count 3.75 mill/uL (4.70-6.10); White Blood Cell (WBC) Count 13.5 thou/uL (4.8-10.8)
[2019-06-02 05:55] LABS: Phosphorus 2.9 mg/dL (2.3-4.7)
[2019-06-02 05:57] LABS: Anion Gap 15 mmol/L (10-20); BUN (Urea Nitrogen) 12 mg/dL (8.4-25.7); Calc. Creatinine Clearance 91 mL/min (70-130); Calcium 7.9 mg/dL (7.8-10.44); Carbon Dioxide 19 mmol/L (23-31); Chloride 106 mmol/L (98-107); Estimated GFR-MDRD Greater than 90; Glucose 117 mg/dL (80-115); Magnesium 1.5 mg/dL (1.6-2.6); Sodium 136 mmol/L (136-145)
[2019-06-02] MEDS: Clopidogrel Bisulfate 75 MG TAB PO SCH (08:58)
[2019-06-02] MEDS: Thiamine 100 MG TAB PO SCH (08:58)
[2019-06-02] MEDS: Lisinopril 20 MG TAB PO SCH ×2 (08:58→20:45)
[2019-06-02] MEDS: Oxazepam 10 MG CAP PO SCH ×3 (08:58→20:45)
[2019-06-02] MEDS: Folic Acid 1 MG TAB PO SCH (08:58)
[2019-06-02] MEDS: Famotidine/PF 20 mg/2ml Vial SLOW IVP SCH ×2 (09:00→20:45)
[2019-06-02] MEDS: Nicotine 14 MG PATCH TD SCH (09:02)
[2019-06-02] MEDS: hydrALAZINE 20 MG/ML VIAL SLOW IVP PRN ×2 (16:00→20:45)
--- NOTE | 2019-06-02 16:28 | OP ---
DATE OF PROCEDURE: 06/01/2019 PREOPERATIVE DIAGNOSIS: Acute appendicitis, suspected to be perforated. POSTOPERATIVE DIAGNOSIS: Acute appendicitis, suspected to be perforated with dense inflammatory mass, likely involving the appendix eroding into the mesentery of the terminal ileum. PROCEDURE PERFORMED: Laparoscopic-assisted ileocecectomy with drain placement. ANESTHESIA: General endotracheal. INDICATIONS: The patient is a 68-year-old black male. He presented with obvious right lower quadrant pain and CT scan showing what appeared to be perforated appendicitis. Taken to the operating room at this time for intended laparoscopic appendectomy. DESCRIPTION OF OPERATION: Informed consent was obtained. The patient was taken to the operating room, where general endotracheal anesthesia was obtained with the patient in supine position. Abdomen was prepped with ChloraPrep and draped in sterile fashion. Garza catheter was placed. A 5-mm incision was placed supraumbilical after local anesthetic was infiltrated. Veress needle was passed through this incision into the peritoneal cavity. Pneumoperitoneum was established using carbon dioxide up to pressure of 15 mmHg. A 5-mm trocar port was passed through the same incision. Laparoscopic camera was passed through this port. Under direct vision, a left lower quadrant 5-mm port was placed as well as a 12-mm suprapubic port. Attention was turned to the right lower quadrant. The patient's bowel was noted to be extensively dilated. The small bowel was dilated throughout. The sigmoid colon was dilated and it bulged over into the right lower quadrant. The cecum was particularly dilated and they made visualization challenging. Nonetheless, I carefully began mobilizing the cecum off the anterior abdominal wall and then eventually off the lateral abdominal wall. I identified an area of induration in the mesentery of the terminal ileum. This was presumed to be an appendiceal abscess on the backside of the mesentery. Unfortunately, the terminal ileum was densely adherent to the lateral abdominal wall and it was very challenging to find a plane to mobilize this medially. I therefore worked from the cecum inferiorly and continue to mobilize this. As I did so, I was eventually able to move the ileum away from the lateral abdominal wall, but I never identified an area of purulence. I turned my attention to the inflammatory mass associated with the mesentery of the terminal ileum. I began trying to dissect this off the inferior aspect of the mesentery. I continued dissecting until one point I recognized that I had a substantial rent in the mesentery of the terminal ileum. At this juncture, I could not adequately tell what to do to further mobilize or dissect this and I decided to place a hand port to help with dissection. A right lower quadrant transverse incision was created and muscle-splitting was used to gain access into the abdominal cavity. The Raul wound retractor was placed followed by the GelPort. Left hand was passed into the abdominal cavity. I was able to digitally dissect the posterior aspect of the cecum and the posterior aspect of the terminal ileum and mobilize these substantially. I then mobilized up along the white line of Toldt to free the rest of the right colon. At this juncture, I was able to externalize the cecum in the area of the inflammatory mass. When looking at this externally, I continued to try to dissect the inflammatory mass, but was having no more luck doing this in an open fashion and I was laparoscopically. I decided therefore to proceed with an ileocecectomy. There was no definite abscess to drain and it was difficult to tell exactly whether this was the appendix or eroding into this mass or not. I divided the terminal ileum with a single fire of the 75 mm HUMPHREY stapler. I did the same with the mid ascending colon. The intervening mesentery was taken down using the LigaSure Impact. The specimen was passed off the field. A stapled anastomosis created between these two limbs of the bowel using the HUMPHREY 75 stapler and the common defect was closed using a final firing of the same stapler. The anastomosis was buttressed with several interrupted sutures of 3-0 silk. The anastomosis was dropped back down to the abdominal cavity. Laparoscopy was reinstituted. I irrigated the area of the prior dissection. There was no purulence and certainly no enteric material. I irrigated and aspirated the pelvis as well. I obtained a #19 round fluted drain and passed this over into the area of the prior resection and brought it out through the left lower quadrant incision, where we secured with 3-0 nylon suture. All ports and instruments were removed under direct vision. Pneumoperitoneum was carefully evacuated. Additional local anesthetic was infiltrated. The fascial defect at the right lower quadrant wound was closed in layers using a running suture of #1 PDS. The wound was copiously irrigated with 2 L of saline. The remainder of the wound was closed with interrupted sutures of 3-0 Vicryl. The skin edge was closed loosely with skin sonia and Telfa tana were placed between these. The other two port sites were closed with sonia and the drain site was covered with a dry gauze dressing. There were no complications. The patient tolerated the procedure well and was taken to recovery room in stable condition. Job ID: [id number]
[2019-06-02] MEDS ORDERED: Benzonatate 100 MG CAP PO PRN (19:01)
[2019-06-02] MEDS ORDERED: FLU VACC TS2019-20(65YR UP)/PF 180 MCG/0.5 ML SYRINGE IM ONE (21:00)
[2019-06-03] MEDS: hydrALAZINE 20 MG/ML VIAL SLOW IVP PRN ×4 (00:49→20:08)
[2019-06-03] MEDS: Piperacillin/Tazobactam 3.375 GM in Sodium Chloride 0.9% 100 ML IVPB SCH ×4 (03:59→20:07)
[2019-06-03] MEDS: Sodium Chloride 0.9% 1,000 ML IV SCH ×2 (05:04→17:51)
[2019-06-03] MEDS: Morphine 4 MG/ML VIAL SLOW IVP PRN ×3 (05:10→23:55)
[2019-06-03] MEDS: Famotidine/PF 20 mg/2ml Vial SLOW IVP SCH ×2 (08:21→20:08)
[2019-06-03] MEDS: Nicotine 14 MG PATCH TD SCH (08:21)
[2019-06-03] MEDS: Folic Acid 1 MG TAB PO SCH (08:22)
[2019-06-03] MEDS: Lisinopril 20 MG TAB PO SCH ×2 (08:22→20:07)
[2019-06-03] MEDS: Clopidogrel Bisulfate 75 MG TAB PO SCH (08:22)
[2019-06-03] MEDS: Thiamine 100 MG TAB PO SCH (08:22)
[2019-06-03] MEDS: Oxazepam 10 MG CAP PO SCH ×3 (08:22→20:39)
[2019-06-03 15:10] LABS: #Lymphocytes 1.3 thou/uL (1.20-3.40); #Monocytes 0.7 thou/uL (0.11-0.59); #Neutrophils 10.1 thou/uL (1.40-6.50); %Basophils 0.1 % (0.0-1.0); %Eosinophils 0.1 % (0.0-10.0); %Lymphocytes 10.8 % (21.0-51.0); %Monocytes 5.4 % (0.0-10.0); %Neutrophils 83.7 % (42.0-75.0); Hemoglobin 8.2 g/dL (14.0-18.0); Mean Corpuscular HGB CONC 30.8 g/dL (32.0-36.0); Mean Corpuscular Hemoglobin 23.6 pg (27.0-31.0); Mean Corpuscular Volume 76.5 fL (78.0-98.0); Mean Platelet Volume 8.3 fL (7.4-10.4); Platelet Count 294 thou/uL (130-400); RBC Distribution Width 16.1 % (11.5-14.5); Red Blood Cell (RBC) Count 3.49 mill/uL (4.70-6.10); White Blood Cell (WBC) Count 12.1 thou/uL (4.8-10.8)
--- NOTE | 2019-06-03 15:16 | PRG ---
DATE OF SERVICE: 06/03/2019 SUBJECTIVE: Mr. Dale is postoperative day #2 for an attempted laparoscopic appendectomy, converted into a laparoscopic ileocecectomy. He complains of abdominal pain. He believes the morphine is not helping him currently. He has had some clear liquids, but not much. He denies flatus or bowel movement. OBJECTIVE: VITAL SIGNS: On examination, his maximum temperature is 99.7, pulse is 89, and blood pressure is 157/65. LUNGS: Clear to auscultation. ABDOMEN: Mildly to moderately distended with no current bowel sounds. His incisions appear to be healing appropriately. Drain has cloudy fluid within it, that is mostly serosanguineous. His drain output for yesterday was 210 mL. LABORATORY DATA: He has a CBC for today that is pending. ASSESSMENT: The patient still has a postoperative ileus. This is not surprising given his colon resection and unprepped bowel and his appendectomy. He is continued on Zosyn at this time. I will continue clear liquids as well. He is not ready to be advanced to oral pain medication. I will add Toradol to his regimen to help with his discomfort and continue morphine p.r.n. He is encouraged to continue to ambulate. We will continue his drain for now. We will advance his diet as his abdomen seems to tolerate. Job ID: [id number]
[2019-06-03] MEDS ORDERED: Ketorolac Tromethamine 30 MG/ML VIAL ONE (15:29)
[2019-06-03] MEDS: Ketorolac Tromethamine 30 MG/ML VIAL IVP SCH ×2 (15:31→21:18)
--- NOTE | 2019-06-03 15:36 | PQF ---
CLINICAL DOCUMENTATION IMPROVEMENT CLARIFICATION FORM: ICD-10 Updated PLEASE DO AN ADDENDUM TO THE PROGRESS NOTE WITH ANY DOCUMENTATION UPDATES OR ADDITIONS AND CARRY THROUGH TO DC SUMMARY. THANK YOU. DATE: 06/03/19 ATTN: DR. JULIAN Please exercise your independent, professional judgment in responding to the clarification form. Clinical indicators are provided on the bottom of this form for your review Please check appropriate box(es): [ x ] Sepsis present on admission [ ] Sepsis NOT present on admission [ ] Unable to determine Due to: perforated_appendicitis [ ] SIRS due to non-infectious process (please specify etiology) [ ] Localized infection without sepsis [ ] Other diagnosis [ ] Unable to determine For continuity of documentation, please document condition throughout progress notes and discharge summary. Thank You. CLINICAL INDICATORS - SIGNS / SYMPTOMS / LABS / RESULTS AND LOCATION IN MR ER TEMP 101.5 WBC 05/31: 24.4 BANDS: 14 GLUCOSE 05/31: 125 PULSE 101, 103 RISKS: PERFORATED APPENDICITIS (OP NOTE) TREATMENT: IV ZOSYN (ER-PRESENT) IV FLUIDS (ER-PRESENT) SURGERY CONSULT 05/31 APPENDECTOMY/ILEOCECECTOMY 06/01 [employer] Sales Manager [employer] Winform Viewer(This form is maintained as a part of the permanent medical record) 2014 [email or web address]. All Rights Reserved [email or web address] Office: [phone] CARMELITA
--- NOTE | 2019-06-03 15:46 | PQF ---
CLINICAL DOCUMENTATION IMPROVEMENT CLARIFICATION FORM: ICD-10 Updated PLEASE DO AN ADDENDUM TO THE PROGRESS NOTE WITH ANY DOCUMENTATION UPDATES OR ADDITIONS AND CARRY THROUGH TO DC SUMMARY. THANK YOU. DATE: 06/03/19 ATTN: DR. JULIAN Please exercise your independent, professional judgment in responding to the clarification form. Clinical indicators are provided on the bottom of this form for your review Please check appropriate box(s): [ ] Acute blood loss anemia [ ] Post-op anemia related to acute blood loss [ x ] Chronic Anemia: [ ] Blood loss [ ] Hemolytic [ ] Simple [ ] Due to Vitamin B12 Deficiency [ ] Other [ ] Anemia of Chronic Disease (please specify) [ ] Other diagnosis [ ] Unable to determine In addition, please specify: Present on Admission (POA): [ x ] Yes [ ] No [ ] Unable to determine For continuity of documentation, please document condition throughout progress notes and discharge summary. Thank You. CLINICAL INDICATORS - SIGNS / SYMPTOMS / LABS / RESULTS AND LOCATION IN EMR HGN/HCT 05/31: 10.7 / 34.7 HGN/HCT 06/02: 8.2 / 26.7 RISKS: APPENDECTOMY/ILEOCECECTOMY 06/01 TREATMENT: SERIAL LABS BLOOD TRANSFUSION 06/02 (This form is maintained as a part of the permanent medical record) 2014 [employer]. All Rights Reserved [email or web address] Office: [phone] [facility]
[2019-06-03] MEDS: Enoxaparin Sodium 40 MG/0.4 ML SYRINGE SC SCH (20:07)
[2019-06-04] MEDS ORDERED: Lisinopril/Hydrochlorothiazide 20 mg/12.5 mg Tablet PO SCH (00:30)
[2019-06-04] MEDS ORDERED: Amlodipine 10 MG TAB PO SCH (00:30)
[2019-06-04] MEDS: Sodium Chloride 0.9% 1,000 ML IV SCH ×3 (00:33→15:50)
[2019-06-04] MEDS: Ketorolac Tromethamine 30 MG/ML VIAL IVP SCH ×4 (03:10→22:03)
[2019-06-04] MEDS: Piperacillin/Tazobactam 3.375 GM in Sodium Chloride 0.9% 100 ML IVPB SCH ×4 (03:11→21:40)
[2019-06-04] MEDS: Folic Acid 1 MG TAB PO SCH (09:09)
[2019-06-04] MEDS: Famotidine/PF 20 mg/2ml Vial SLOW IVP SCH ×2 (09:09→20:44)
[2019-06-04] MEDS: Thiamine 100 MG TAB PO SCH (09:09)
[2019-06-04] MEDS: Nicotine 14 MG PATCH TD SCH (09:14)
[2019-06-04] MEDS: Oxazepam 10 MG CAP PO SCH ×3 (09:15→21:40)
[2019-06-04] MEDS: hydrALAZINE 20 MG/ML VIAL SLOW IVP PRN ×2 (09:32→19:41)
--- NOTE | 2019-06-04 12:16 | PRG ---
DATE OF SERVICE: SUBJECTIVE: Hayden Dale is doing well after hand-assisted ileocecectomy for advanced appendicitis. The patient is tolerating liquids without nausea or vomiting. However, he has not passed any flatus or stool. His abdomen feels bloated and distended. He is ambulating with walking program very well. Dr. Ozuna has him on clear liquids and have asked the patient to take only sips and chips until bowel function is better. We will not advance his diet. There are no labs today. PHYSICAL EXAMINATION: VITAL SIGNS: Temperature 99.2 degrees, 98% saturation, blood pressure 191/73. LUNGS: Clear to auscultation. CARDIAC: Regular rate and rhythm without murmur or gallop. ABDOMEN: Quite, soft, distended, tympanitic. Surgical wound looks good. Drainage serosanguineous from the drain. EXTREMITIES: Unremarkable. ASSESSMENT AND PLAN: Postoperative ileus. Continue minimal intake. Await better GI function. Continue IV fluids. The patient overall has a good activity level. Continue IV fluids 100 an hour. Job ID: [id number]
[2019-06-04] MEDS ORDERED: Ketorolac Tromethamine 30 MG/ML VIAL ONE (15:46)
[2019-06-04] MEDS: Morphine 4 MG/ML VIAL SLOW IVP PRN ×2 (19:38→21:58)
[2019-06-04] MEDS: Enoxaparin Sodium 40 MG/0.4 ML SYRINGE SC SCH (20:44)
[2019-06-04] MEDS: Lisinopril/Hydrochlorothiazide 20 mg/12.5 mg Tablet PO SCH (20:44)
[2019-06-05] MEDS: Piperacillin/Tazobactam 3.375 GM in Sodium Chloride 0.9% 100 ML IVPB SCH ×4 (03:43→20:23)
[2019-06-05] MEDS: Ketorolac Tromethamine 30 MG/ML VIAL IVP SCH ×4 (03:44→22:33)
[2019-06-05] MEDS: Morphine 4 MG/ML VIAL SLOW IVP PRN ×4 (03:45→20:39)
[2019-06-05] MEDS: hydrALAZINE 20 MG/ML VIAL SLOW IVP PRN ×3 (04:32→22:33)
[2019-06-05] MEDS: Folic Acid 1 MG TAB PO SCH (08:16)
[2019-06-05] MEDS: Famotidine/PF 20 mg/2ml Vial SLOW IVP SCH ×2 (08:16→20:23)
[2019-06-05] MEDS: Amlodipine 10 MG TAB PO SCH (08:16)
[2019-06-05] MEDS: Nicotine 14 MG PATCH TD SCH (08:16)
[2019-06-05] MEDS: Oxazepam 10 MG CAP PO SCH ×3 (08:16→20:34)
[2019-06-05] MEDS: Lisinopril/Hydrochlorothiazide 20 mg/12.5 mg Tablet PO SCH ×2 (08:16→20:23)
[2019-06-05] MEDS: Thiamine 100 MG TAB PO SCH (08:17)
--- NOTE | 2019-06-05 11:02 | RAD ---
KUB: Date: 06/05/2019 HISTORY: Abdomen distention. FINDINGS: Surgical clips seen in the right lower quadrant. There is gaseous distention of the stomach. There is air within both small and large bowel. Some of the more distal ileal small bowel loops are minimally distended. No free air appreciated on this supine film. Drainage catheter is in place. IMPRESSION: Findings that would be more suggestive of an ileus with some very mild distention, some of the more d istal small bowel loops, but air present within the colon. POS: TPC
--- NOTE | 2019-06-05 15:50 | PRG ---
DATE OF SERVICE: 06/05/2019 SUBJECTIVE: Hayden Dale is doing well today. He is seen today by Dr. Ozuna. This patient had an ileocecectomy for advanced appendicitis. Temperature 97.8 degrees, pulse 94, and blood pressure 163/76. QUYNH drainage 350 mL serous. Abdominal x-ray reveals multiple air-fluid levels and distended stomach. The patient has been ambulating well frequently in the hallways and feels much better. OBJECTIVE: LUNGS: Clear to auscultation. CARDIAC: Regular rate and rhythm without murmur or gallop. ABDOMEN: Soft, mild tympany, mild distention. The patient has not passed any flatus or stool. EXTREMITIES: Unremarkable. ASSESSMENT AND PLAN: Postoperative ileus as expected. Continue sips and chips only. I have discontinue clear liquids. Await better GI function. The patient is feeling much better, perhaps liquids can be restarted tomorrow. Job ID: [id number]
[2019-06-05] MEDS: Sodium Chloride 0.9% 1,000 ML IV SCH ×2 (16:30→20:35)
[2019-06-05] MEDS: Enoxaparin Sodium 40 MG/0.4 ML SYRINGE SC SCH (20:22)
[2019-06-06] MEDS: Ketorolac Tromethamine 30 MG/ML VIAL IVP SCH ×4 (03:13→21:08)
[2019-06-06] MEDS: hydrALAZINE 20 MG/ML VIAL SLOW IVP PRN ×3 (03:14→18:56)
[2019-06-06] MEDS: Piperacillin/Tazobactam 3.375 GM in Sodium Chloride 0.9% 100 ML IVPB SCH ×4 (03:14→21:08)
[2019-06-06] MEDS: Sodium Chloride 0.9% 1,000 ML IV SCH (03:23)
[2019-06-06] MEDS: Thiamine 100 MG TAB PO SCH (08:17)
[2019-06-06] MEDS: Amlodipine 10 MG TAB PO SCH (08:17)
[2019-06-06] MEDS: Lisinopril/Hydrochlorothiazide 20 mg/12.5 mg Tablet PO SCH ×2 (08:17→21:06)
[2019-06-06] MEDS: Folic Acid 1 MG TAB PO SCH (08:17)
[2019-06-06] MEDS: Famotidine/PF 20 mg/2ml Vial SLOW IVP SCH ×2 (08:17→21:07)
[2019-06-06] MEDS: Morphine 4 MG/ML VIAL SLOW IVP PRN (08:21)
[2019-06-06] MEDS: Oxazepam 10 MG CAP PO SCH (09:25)
[2019-06-06] MEDS: Nicotine 14 MG PATCH TD SCH (09:26)
[2019-06-06 10:48] LABS: Anion Gap 14 mmol/L (10-20); BUN (Urea Nitrogen) 11 mg/dL (8.4-25.7); Calc. Creatinine Clearance 98 mL/min (70-130); Calcium 8.5 mg/dL (7.8-10.44); Carbon Dioxide 19 mmol/L (23-31); Chloride 105 mmol/L (98-107); Estimated GFR-MDRD Greater than 90; Glucose 76 mg/dL (80-115); Potassium 3.1 mmol/L (3.5-5.1); Sodium 135 mmol/L (136-145)
[2019-06-06 11:45] LABS: #Eosinphils 0.3 thou/uL (0.0-0.7); #Lymphocytes 1.6 thou/uL (1.20-3.40); #Monocytes 1.2 thou/uL (0.11-0.59); #Neutrophils 6.7 thou/uL (1.40-6.50); %Basophils 0.3 % (0.0-1.0); %Eosinophils 3.1 % (0.0-10.0); %Lymphocytes 16.1 % (21.0-51.0); %Monocytes 12.4 % (0.0-10.0); %Neutrophils 68.2 % (42.0-75.0); Hemoglobin 8.9 g/dL (14.0-18.0); Hypochromia SLIGHT = 6-15 cells (100X) (0-5/hpf); MDiff Complete? YES; Mean Corpuscular HGB CONC 31.8 g/dL (32.0-36.0); Mean Corpuscular Hemoglobin 23.9 pg (27.0-31.0); Mean Platelet Volume 8.8 fL (7.4-10.4); Microcytosis SLIGHT = 6-15 cells (100X) (0-5/hpf); Platelet Count 367 thou/uL (130-400); Platelet Morphology Comment Appears Adequate; Polychromasia SLIGHT = 2-3 cells (100X) (0-2/hpf); Red Blood Cell (RBC) Count 3.71 mill/uL (4.70-6.10); White Blood Cell (WBC) Count 9.8 thou/uL (4.8-10.8)
[2019-06-06] MEDS ORDERED: Potassium Chloride 20 MEQ in Premix Bag 1 BAG IVPB SCH (14:30)
--- NOTE | 2019-06-06 14:33 | PRG ---
DATE OF SERVICE: 06/06/2019 SUBJECTIVE: Mr. Dael is postoperative day #5 from an attempted laparoscopic appendectomy converted to a laparoscopic ileocecectomy. He remains in the hospital on the surgical floor. He continues to request food. He tells me that he passed some flatus today. He tells me that he has not had a bowel movement nor has he vomited, and he is belching regularly. He has apparently still been using morphine intermittently. OBJECTIVE: VITAL SIGNS: On examination, he is afebrile. Pulse is 91, blood pressure 188/75. LUNGS: Clear to auscultation anteriorly. ABDOMEN: Distended with no audible bowel sounds. Incisions are all healing appropriately. Drain output is serous. LABORATORY DATA: His white blood cell count is down to 9.8 with a normal differential. Hemoglobin is 8.9. Chemistry panel reveals that his potassium is low at 3.1. ASSESSMENT: The patient continues to have a postoperative ileus as expected. Continue sips of clear liquids. I will correct his IV fluids to account for his electrolytes. I will discontinue his Serax and his morphine, and encourage ambulation. He will be given an enema to see if that can stimulate some bowel activity. Job ID: [id number]
[2019-06-06] MEDS: Potassium Chloride 30 MEQ in Sodium Chloride 0.9% 1,000 ML IV SCH (15:01)
--- NOTE | 2019-06-06 15:04 | RAD ---
EXAM: XR Abdomen 1 View/KUB PROVIDED CLINICAL HISTORY: Suspected ileus. Patient is postoperative. COMPARISON: 06/05/2019 FINDINGS: Distended gas-filled and dilated loops of small bowel are again seen. Surgical clips overlie the lowe r abdomen and lower pelvis. Drainage catheter is again seen overlying the abdomen with tip overlying the lateral right mid abdomen. No other interval change. IMPRESSION: Dilated gas-filled loops of small bowel seen throughout the abdomen. Findings again may be related to postoperative ileus. Partial small bowel obstruction cannot be entirely excluded. Gas is present in the rectum.
[2019-06-06] MEDS ORDERED: Fleet Enema 133 ML BOT PR SCH (15:45)
[2019-06-06] MEDS: Enoxaparin Sodium 40 MG/0.4 ML SYRINGE SC SCH (21:06)
[2019-06-07] MEDS: Ketorolac Tromethamine 30 MG/ML VIAL IVP SCH ×4 (03:05→21:04)
[2019-06-07] MEDS: Piperacillin/Tazobactam 3.375 GM in Sodium Chloride 0.9% 100 ML IVPB SCH (03:06)
[2019-06-07] MEDS: Potassium Chloride 30 MEQ in Sodium Chloride 0.9% 1,000 ML IV SCH ×2 (03:10→09:08)
[2019-06-07 04:59] LABS: #Eosinphils 0.3 thou/uL (0.0-0.7); #Lymphocytes 1.9 thou/uL (1.20-3.40); #Monocytes 1.5 thou/uL (0.11-0.59); #Neutrophils 6.6 thou/uL (1.40-6.50); %Basophils 0.2 % (0.0-1.0); %Eosinophils 3.2 % (0.0-10.0); %Lymphocytes 18.4 % (21.0-51.0); %Monocytes 14.1 % (0.0-10.0); %Neutrophils 64.1 % (42.0-75.0); Hemoglobin 8.1 g/dL (14.0-18.0); Mean Corpuscular HGB CONC 30.9 g/dL (32.0-36.0); Mean Corpuscular Hemoglobin 23.3 pg (27.0-31.0); Mean Corpuscular Volume 75.5 fL (78.0-98.0); Mean Platelet Volume 8.7 fL (7.4-10.4); Platelet Count 349 thou/uL (130-400); Red Blood Cell (RBC) Count 3.46 mill/uL (4.70-6.10); White Blood Cell (WBC) Count 10.3 thou/uL (4.8-10.8)
[2019-06-07 05:16] LABS: Anion Gap 13 mmol/L (10-20); BUN (Urea Nitrogen) 9 mg/dL (8.4-25.7); Calc. Creatinine Clearance 98 mL/min (70-130); Calcium 8.4 mg/dL (7.8-10.44); Carbon Dioxide 20 mmol/L (23-31); Chloride 103 mmol/L (98-107); Estimated GFR-MDRD Greater than 90; Glucose 100 mg/dL (80-115); Potassium 3.1 mmol/L (3.5-5.1); Sodium 133 mmol/L (136-145)
[2019-06-07] MEDS: Lisinopril/Hydrochlorothiazide 20 mg/12.5 mg Tablet PO SCH ×2 (09:13→21:03)
[2019-06-07] MEDS: Thiamine 100 MG TAB PO SCH (09:13)
[2019-06-07] MEDS: Amlodipine 10 MG TAB PO SCH (09:13)
[2019-06-07] MEDS: Clopidogrel Bisulfate 75 MG TAB PO SCH (09:13)
[2019-06-07] MEDS: Famotidine/PF 20 mg/2ml Vial SLOW IVP SCH ×2 (09:13→21:03)
[2019-06-07] MEDS: hydrALAZINE 20 MG/ML VIAL SLOW IVP PRN ×3 (09:13→23:38)
[2019-06-07] MEDS: Nicotine 14 MG PATCH TD SCH (09:13)
[2019-06-07] MEDS: Folic Acid 1 MG TAB PO SCH (09:15)
[2019-06-07] MEDS ORDERED: Potassium Chloride 40 MEQ in Sodium Chloride 0.9% 250 ML 250 ML IVPB SCH (09:15)
--- NOTE | 2019-06-07 09:24 | PRG ---
DATE OF SERVICE: 06/07/2019 SUBJECTIVE: Mr. Dale is postoperative day #6 from attempted laparoscopic appendectomy converted to a laparoscopic ileocecectomy. He remains in the hospital on the surgical floor. He tells me again that he has passed some flatus. He denies bowel movement. He says he has not vomited. He clearly still has substantially distended abdomen. OBJECTIVE: VITAL SIGNS: He is afebrile. Pulse is 69, blood pressure 184/75. LUNGS: Clear to auscultation anteriorly. ABDOMEN: Distended and there are no bowel sounds audible. MUSCULOSKELETAL: His right lower quadrant incision is healing nicely. The Telfa tana were removed today. Dry gauze dressing is placed externally. There is no drainage or tenderness at this site. The 2 laparoscopic sites are healing nicely as well. The drain is draining clear serous fluid. There was 310 mL for yesterday. LABORATORY DATA: His CBC is stable for him. White blood cell count is 10.3 with a normal differential. His hemoglobin is 8.1. His chemistries reveal persistently low potassium level. His sodium and carbon dioxide are both a little bit low as well. ASSESSMENT AND PLAN: The patient persists in a prolonged ileus. I will again correct his potassium. His morphine was discontinued yesterday. I will discontinue his antibiotics as he did not have any intraabdominal purulence or contamination and at this juncture out from surgery, likely does not need continued IV antibiotics. His diet will be advanced when his ileus resolves. Job ID: [id number]
[2019-06-07] MEDS: Enoxaparin Sodium 40 MG/0.4 ML SYRINGE SC SCH (21:04)
[2019-06-08] MEDS: Ketorolac Tromethamine 30 MG/ML VIAL IVP SCH ×3 (04:23→15:53)
[2019-06-08] MEDS: Potassium Chloride 30 MEQ in Sodium Chloride 0.9% 1,000 ML IV SCH (05:22)
[2019-06-08] MEDS ORDERED: Potassium Chloride 20 MEQ TAB PO SCH (07:30)
[2019-06-08 08:01] LABS: Anion Gap 13 mmol/L (10-20); BUN (Urea Nitrogen) 7 mg/dL (8.4-25.7); Calc. Creatinine Clearance 112 mL/min (70-130); Calcium 8.3 mg/dL (7.8-10.44); Carbon Dioxide 19 mmol/L (23-31); Chloride 104 mmol/L (98-107); Estimated GFR-MDRD Greater than 90; Glucose 90 mg/dL (80-115); Potassium 3.6 mmol/L (3.5-5.1); Sodium 132 mmol/L (136-145)
--- NOTE | 2019-06-08 08:14 | PRG ---
DATE OF SERVICE: 06/08/2019 SUBJECTIVE: Chito is doing well today. He is hungry. He is already calling for his meal before I can put orders in. OBJECTIVE: VITAL SIGNS: Temperature 98.5 degrees, heart rate 72, blood pressure 172/54. LUNGS: Clear to auscultation. CARDIAC: Regular rhythm. No murmur or gallop. ABDOMEN: Slightly distended, tympanic, but he has had 4 bowel movements and passed flatus. His wound looks good. QUYNH drainage is serous, 310 mL in last 24 hours. PLAN: Advance diet to regular diet. Resume home medications. Check creatinine drain and eventually remove it later today or tomorrow. Oral analgesics. Job ID: [id number]
[2019-06-08] MEDS: Folic Acid 1 MG TAB PO SCH (08:46)
[2019-06-08] MEDS: Nicotine 14 MG PATCH TD SCH (08:46)
[2019-06-08] MEDS: Aspirin 325 mg Enteric Coated Tablet PO SCH (08:46)
[2019-06-08] MEDS: Thiamine 100 MG TAB PO SCH (08:46)
[2019-06-08] MEDS: Amlodipine 10 MG TAB PO SCH (08:46)
[2019-06-08] MEDS: Clopidogrel Bisulfate 75 MG TAB PO SCH (08:47)
[2019-06-08] MEDS: Lisinopril/Hydrochlorothiazide 20 mg/12.5 mg Tablet PO SCH ×2 (08:47→20:07)
[2019-06-08] MEDS: hydrALAZINE 20 MG/ML VIAL SLOW IVP PRN (08:48)
[2019-06-08] MEDS ORDERED: [UNRECOGNIZED DRUG - OTHER] PO SCH (09:00)
[2019-06-08] MEDS ORDERED: EPCLUSA PO SCH (09:00)
[2019-06-08] MEDS ORDERED: traMADol HCl 50 MG TAB PO PRN ×2 (11:38)
[2019-06-08] MEDS ORDERED: Acetaminophen 500 MG TAB PO PRN (11:38)
[2019-06-08] MEDS: Enoxaparin Sodium 40 MG/0.4 ML SYRINGE SC SCH (20:07)
[2019-06-08] MEDS ORDERED: Ibuprofen 600 MG TAB PO PRN (22:00)
[2019-06-09 06:00] LABS: Anion Gap 14 mmol/L (10-20); BUN (Urea Nitrogen) 11 mg/dL (8.4-25.7); Calc. Creatinine Clearance 106 mL/min (70-130); Calcium 8.2 mg/dL (7.8-10.44); Carbon Dioxide 16 mmol/L (23-31); Chloride 106 mmol/L (98-107); Estimated GFR-MDRD Greater than 90; Glucose 103 mg/dL (80-115); Potassium 3.3 mmol/L (3.5-5.1); Sodium 133 mmol/L (136-145)
[2019-06-09 07:02] VITALS: BP 170/81; TEMP 98.3
[2019-06-09] MEDS: Lisinopril/Hydrochlorothiazide 20 mg/12.5 mg Tablet PO SCH (08:50)
[2019-06-09] MEDS: Nicotine 14 MG PATCH TD SCH (08:50)
[2019-06-09] MEDS: Thiamine 100 MG TAB PO SCH (08:50)
[2019-06-09] MEDS: Clopidogrel Bisulfate 75 MG TAB PO SCH (08:50)
[2019-06-09] MEDS: Amlodipine 10 MG TAB PO SCH (08:50)
[2019-06-09] MEDS: Aspirin 325 mg Enteric Coated Tablet PO SCH (08:50)
[2019-06-09] MEDS: Folic Acid 1 MG TAB PO SCH (08:50)
[2019-06-09] MEDS ORDERED: Potassium Chloride 20 MEQ TAB PO SCH (09:45)
[2019-06-09] MEDS ORDERED: HYDROcodone/Acetaminophen 5/325 mg Tablet PO PRN (10:28)
--- NOTE | 2019-06-09 17:01 | DIS ---
DATE OF ADMISSION: 06/01/2019 DATE OF DISCHARGE: 06/09/2019 HISTORY: Hayden Dale is doing well today. He is tolerating a regular diet. He wants to go home. He has had multiple bowel movements. OBJECTIVE: VITAL SIGNS: Temperature 98.3 degrees, 170/81. LUNGS: Clear to auscultation. CARDIAC: Regular rate, rhythm. No murmur. ABDOMEN: Soft, nontender. No masses. Wound is well healed. EXTREMITIES: Unremarkable. ASSESSMENT AND PLAN: Appendicitis, status post hand-assisted ileocecectomy. Discharged home on Augmentin for 5 days; [place] 5/325 (the patient states Tylenol does not work and he is allergic to tramadol), #25, one p.o. q.i.d. p.r.n. pain. All that he has had for pain in the hospital is Tylenol but he states that is ineffective for his pain. Resume home medications, lisinopril, amlodipine, Epclusa tablets, Plavix, aspirin. Diet and activity as tolerated. No lifting more than 25 pounds. Job ID: [id number]
[2019-06-09] MEDS ORDERED: Amoxicillin/Potassium Clav 500 MG TAB PO SCH (21:00)
--- NOTE | 2019-06-10 14:03 | PQF ---
REBECCA DAVILA MICHAEL W MD [id number] [facility] A- 3307 [id number] CLINICAL DOCUMENTATION CLARIFICATION FORM: POST DISCHARGE Addendum to original discharge summary date: ____ Late entry note date: __ DATE: 06/10/2019 ATTN:DAVID JULIAN MD Please exercise your independent, professional judgment in responding to the clarification form. Clinical indicators are provided on the bottom of this form for your review Please check appropriate box(s): kindly clarify the Perforated appendicitis [ x] Perforated appendicitis is infectious [ ] Perforated appendicitis is not infectious [ ] Other diagnosis [ ] Unable to determine For continuity of documentation, please document condition throughout progress notes and discharge summary. Thank You. CLINICAL INDICATORS - SIGNS / SYMPTOMS / LABS Sepsis due to Perforated appendicitis-Documented in query response Acute appendicitis , suspected to be perforated with dense inflammatory mass , likely involving the appendix eroding into the mesentry of the terminal ileum- Documented in op note on 05/31 by David Julian MD Acute Appendicitis with perforation and acute serositis -Documented in pathology report RISK FACTORS Sepsis due to Perforated appendicitis-Documented in query response TREATMENTS: Laparoscopic-Assisted ileocecostomy with drain placement -Documented in op note on 05/31 by David Julian MD Zosyn 3.375 gm IV-Documented in Medication snapshot [employer] Crystal Reports Winform Viewer (This form is maintained as a part of the permanent medical record) 2014 [employer]. All Rights Reserved [email or web address] [phone] CARMELITA
--- NOTE | 2019-06-10 14:08 | PQF ---
REBECCA DAVILA MICHAEL W MD [id number] [facility]- 3307 [id number] CLINICAL DOCUMENTATION CLARIFICATION FORM: POST DISCHARGE Addendum to original discharge summary date: ____ Late entry note date: __ DATE:06/10/2019 ATTN:DAVID JULIAN MD Please exercise your independent, professional judgment in responding to the clarification form. Clinical indicators are provided on the bottom of this form for your review ___ Final Diagnosis on the Pathology report: Acute serositis ___ Progress Notes indicate: Acuet Appendicitis Based on the pathological findings of (i.e. metastasis to the axillary lymph nodes, primary prostate carcinoma, etc.), is this a confirmed diagnosis for this patient? [ ] Yes, this is a secondary diagnosis for this patient [ x ] Other (additional comments): ____No. This is not a diagnosis, but a finding typical of perforated appendicitis._ [ ] Unable to determine For continuity of documentation, please document condition throughout progress notes and discharge summary. Thank You. CLINICAL INDICATORS - SIGNS/ SYMPTOMS / LABS / RESULTS AND LOCATION IN MR Acute Appendicitis with perforation and acute serositis -Documented in pathology report Sepsis due to Perforated appendicitis-Documented in query response Acute appendicitis , suspected to be perforated with dense inflammatory mass , likely involving the appendix eroding into the mesentry of the terminal ileum- Documented in op note on 05/31 by David Julian MD RISK FACTORS / RESULTS AND LOCATION IN MR Sepsis due to Perforated appendicitis-Documented in query response TREATMENTS / RESULTS AND LOCATION IN MR Laparoscopic-Assisted ileocecostomy with drain placement -Documented in op note on 05/31 by David Julian MD Zosyn 3.375 gm IV-Documented in Medication snapshot [employer] Crystal Reports Winform Viewer (This form is maintained as a part of the permanent medical record) 2014 [employer]. All Rights Reserved [email or web address]
== END 2019-06-09 11:30 | disposition home or self-care (01) | DRG 853 ==
LOC: ERS 11:48 → SDC 17:19 → SURG A 22:35
PROVIDERS: ADMIT Specialist; ATTEND Specialist
PROC: 0DBH0ZZ Excision of Cecum, Open Approach (ICD-10-PCS; principal; 2019-06-02)
PROC: 0WJG4ZZ Inspection of Peritoneal Cavity, Percutaneous Endoscopic Approach (ICD-10-PCS; 2019-06-02)
DX: A41.9 Sepsis, unspecified organism (principal); K35.32 Acute appendicitis with perforation, localized peritonitis, and gangrene, without abscess; K56.7 Ileus, unspecified; I10 Essential (primary) hypertension; I25.10 Atherosclerotic heart disease of native coronary artery without angina pectoris; D64.9 Anemia, unspecified; Z98.890 Other specified postprocedural states; F17.210 Nicotine dependence, cigarettes, uncomplicated
CPT/HCPCS: 36415; 71045; 74018; 74177; 80048; 80053; 81003; 82570; 83690; 83735; 84100; 84484; 85025; 85610; 85730; 86850; 86900; 86901; 88307; 93005; 96361; 96365; 96375; J0171; J0360; J1650; J1885; J2001; J2270; J2370; J2405; J2543; J2704; J3010; J3480; J3490; J7050; Q9967; S0020; S0028

== ENCOUNTER 2019-10-07 11:48 | Emergency (ER) | payer MEDICARE, MEDICAID, OTHER ==
[2019-10-07 13:17] LABS: #Basophils 0.1 thou/uL (0.0-0.2); #Eosinphils 0.3 thou/uL (0.0-0.7); #Lymphocytes 2.4 thou/uL (1.20-3.40); #Monocytes 0.5 thou/uL (0.11-0.59); #Neutrophils 5.9 thou/uL (1.40-6.50); %Eosinophils 3.4 % (0.0-10.0); %Monocytes 5.7 % (0.0-10.0); Hemoglobin 8.7 g/dL (14.0-18.0); Mean Corpuscular Hemoglobin 21.1 pg (27.0-31.0); Mean Corpuscular Volume 72.8 fL (78.0-98.0); Mean Platelet Volume 9.5 fL (7.4-10.4); Platelet Count 315 thou/uL (130-400); RBC Distribution Width 17.4 % (11.5-14.5); Red Blood Cell (RBC) Count 4.12 mill/uL (4.70-6.10); White Blood Cell (WBC) Count 9.2 thou/uL (4.8-10.8)
[2019-10-07 13:39] LABS: Anisocytosis SLIGHT = 6-15 cells (100X) (0-5/hpf); Hypochromia SLIGHT = 6-15 cells (100X) (0-5/hpf); Large Platelets SLIGHT; MDiff Complete? YES; Microcytosis SLIGHT = 6-15 cells (100X) (0-5/hpf); Ovalocytes SLIGHT = 2-5 cells (100X) (0-1/hpf); Platelet Morphology Comment Appears Adequate; Polychromasia SLIGHT = 2-3 cells (100X) (0-2/hpf); Target Cells SLIGHT = 2-5 cells (100X) (0-1/hpf)
[2019-10-07 13:46] LABS: ALT (SGPT) 9 U/L (8-55); AST (SGOT) 15 U/L (5-34); Albumin 4.5 g/dL (3.4-4.8); Alkaline Phosphatase 95 U/L (40-110); Anion Gap 13 mmol/L (10-20); BUN (Urea Nitrogen) 10 mg/dL (8.4-25.7); Bilirubin, Total 0.5 mg/dL (0.2-1.2); Calc. Creatinine Clearance 0 mL/min (70-130); Calcium 9.5 mg/dL (7.8-10.44); Carbon Dioxide 20 mmol/L (23-31); Chloride 106 mmol/L (98-107); Estimated GFR-MDRD 87; Glucose 100 mg/dL (80-115); Potassium 3.7 mmol/L (3.5-5.1); Protein, Total 8.5 g/dL (5.8-8.1); Sodium 135 mmol/L (136-145)
[2019-10-08 14:07] LABS: SARS-CoV-2 MS2 Positive; SARS-CoV-2 N Gene Negative; SARS-CoV-2 S Gene Negative; SARS-CoV-2 by NAA Not Detected (NotDetected); SARS-CoV-2 orf1ab Negative
== END 2019-10-07 14:32 | disposition home or self-care (01) ==
LOC: ERS 11:48
DX: D50.9 Iron deficiency anemia, unspecified (principal); Z20.828 Contact with and (suspected) exposure to other viral communicable diseases; I10 Essential (primary) hypertension; M19.90 Unspecified osteoarthritis, unspecified site; F17.210 Nicotine dependence, cigarettes, uncomplicated; Z79.899 Other long term (current) drug therapy
CPT/HCPCS: 80053; 82274; 85025; 86850; 86900; 86901; 99284; U0003; 36415; 87635

== ENCOUNTER 2020-08-24 10:52 | Outpatient (CLI) | payer MEDICARE, MEDICAID | END 2020-08-24 10:53 | disposition home or self-care (01) | LOC: EKG 10:52 | PROVIDERS: ATTEND Nurse Practitioner Family | DX: I73.89 Other specified peripheral vascular diseases (principal); I10 Essential (primary) hypertension; D50.8 Other iron deficiency anemias; M15.0 Primary generalized (osteo)arthritis | CPT/HCPCS: 71046; 93005; 93010 ==

== ENCOUNTER 2023-12-02 13:16 | Emergency (ER) | payer OTHER, MEDICAID ==
[~2023-12-02 13:16] MED LIST changes: -Glycopyrrolate 0.2 MG/ML 5 ML SYRINGE ONE; +Iopamidol-370 76% 500 ML MDV (1 ML CHARGE) ONE; -Lidocaine 1% PF 5 ML VIAL ONE; -Ondansetron PF 4 MG/2 ML Vial ONE; -PHENYLEPHRINE-NS 100 MCG/ML 10 ML SYRINGE ONE; -PROPOFOL 200 MG/20 ML VIAL ONE; -Rocuronium Bromide 10 MG/ML (10ML VIAL) ONE; -Succinylcholine Chloride 20 MG/ML 10 ml SYRINGE FS ONE
[2023-12-02 14:27] LABS: #Basophils 0.03 10x3/uL (0.0-0.2); %Basophils 0.3 % (0.0-1.0); %Eosinophils 2.7 % (0.0-10.0); %Lymphocytes 22.5 % (21.0-51.0); %Monocytes 4.8 % (0.0-10.0); %Neutrophils 69.4 % (42.0-75.0); Hematocrit 25.9 % (42.0-52.0); Hemoglobin 7.7 g/dL (14.0-18.0); Mean Corpuscular HGB CONC 29.7 g/dL (32.0-36.0); Mean Corpuscular Volume 70.6 fL (78.0-98.0); Mean Platelet Volume 10.7 fL (7.4-10.4); Platelet Count 325 10x3/uL (130-400); RBC Distribution Width 19.5 % (11.5-14.5); Red Blood Cell (RBC) Count 3.67 mill/uL (4.70-6.10)
[2023-12-02 14:37] LABS: Prothrombin Time 13.6 sec (12.0-14.7)
[2023-12-02 14:38] LABS: PTT 29.2 sec (22.9-36.1)
[2023-12-02 14:41] LABS: ALT (SGPT) 5 U/L (8-55); AST (SGOT) 12 U/L (5-34); Albumin 3.5 g/dL (3.4-4.8); Alkaline Phosphatase 67 U/L (40-110); Anion Gap 16 mmol/L (10-20); BUN (Urea Nitrogen) 13 mg/dL (8.4-25.7); Bilirubin, Total 0.3 mg/dL (0.2-1.2); Calc. Creatinine Clearance 0 mL/min (70-130); Carbon Dioxide 20 mmol/L (23-31); Chloride 110 mmol/L (98-107); Estimated GFR 88; Globulin 3.8 g/dL (2.4-3.5); Glucose 167 mg/dL (83-110); Potassium 3.6 mmol/L (3.5-5.1); Protein, Total 7.3 g/dL (5.8-8.1); Sodium 142 mmol/L (136-145)
[2023-12-02] MEDS ORDERED: diphenhydrAMINE 50 MG/ML VIAL ONE (15:51)
[2023-12-02] MEDS ORDERED: Ondansetron PF 4 MG/2 ML Vial ONE (16:33)
[2023-12-02] MEDS ORDERED: Morphine 2 MG/ML VIAL ONE (16:33)
== END 2023-12-02 19:05 | disposition home or self-care (01) ==
LOC: ERS 13:16
DX: I73.9 Peripheral vascular disease, unspecified (principal); D64.9 Anemia, unspecified; I10 Essential (primary) hypertension; F17.210 Nicotine dependence, cigarettes, uncomplicated
CPT/HCPCS: 75635; 80053; 85025; 85610; 85730; 96374; 96375; 99284; J1200; J2272; J2405; Q9967; 36415

== ENCOUNTER 2024-01-18 02:05 | Emergency (ER) | payer OTHER, MEDICAID | END 2024-01-18 03:32 | disposition home or self-care (01) | LOC: ERS 02:05 | DX: I73.9 Peripheral vascular disease, unspecified (principal); I10 Essential (primary) hypertension; F17.210 Nicotine dependence, cigarettes, uncomplicated | CPT/HCPCS: 99283 ==

== ENCOUNTER 2024-02-02 02:16 | Inpatient (IN) | payer OTHER, MEDICAID ==
[2024-02-02] MEDS ORDERED: Furosemide 40 MG (4 mL) VIAL ONE (02:36)
[2024-02-02 02:37] LABS: Actual Bicarbonate (HCO3v) 21.8 mEq/L (22-28); Analyzer IN Cardio ER; Base Excess -6.1 mEq/L (-2.0 to +3.0); Calcium, Ionized (venous) 1.13 mmol/L (1.16-1.32); Chloride (VBG) 107 mmol/L (98-106); Hematocrit-VBG 24 % (42.0-52.0); Hemoglobin (Hb) 8.3 g/dL (12.6-17.4); Potassium (VBG) 3.84 mmol/L (3.70-5.30); Sodium 139 mmol/L (133-146)
[2024-02-02 03:04] LABS: #Basophils Less than 0.03 10x3/uL (0.0-0.2); %Basophils 0.2 % (0.0-1.0); %Eosinophils 2.2 % (0.0-10.0); %Lymphocytes 18.9 % (21.0-51.0); %Monocytes 5.1 % (0.0-10.0); Hematocrit 25.1 % (42.0-52.0); Hemoglobin 7.1 g/dL (14.0-18.0); Mean Corpuscular HGB CONC 28.3 g/dL (32.0-36.0); Mean Corpuscular Hemoglobin 19.3 pg (27.0-31.0); Mean Corpuscular Volume 68.2 fL (78.0-98.0); Mean Platelet Volume 10.4 fL (7.4-10.4); Platelet Count 272 10x3/uL (130-400); RBC Distribution Width 17.7 % (11.5-14.5); Red Blood Cell (RBC) Count 3.68 mill/uL (4.70-6.10)
[2024-02-02 03:10] LABS: ALT (SGPT) 6 U/L (8-55); AST (SGOT) 20 U/L (5-34); Albumin 3.3 g/dL (3.4-4.8); Alkaline Phosphatase 74 U/L (40-110); Anion Gap 15 mmol/L (10-20); BUN (Urea Nitrogen) 10 mg/dL (8.4-25.7); Bilirubin, Total 0.2 mg/dL (0.2-1.2); Calc. Creatinine Clearance 0 mL/min (70-130); Calcium 8.2 mg/dL (7.8-10.44); Carbon Dioxide 18 mmol/L (23-31); Chloride 110 mmol/L (98-107); Estimated GFR 86; Globulin 3.6 g/dL (2.4-3.5); Glucose 182 mg/dL (83-110); Potassium 3.8 mmol/L (3.5-5.1); Protein, Total 6.9 g/dL (5.8-8.1); Sodium 139 mmol/L (136-145)
[2024-02-02 03:16] LABS: Troponin I 0.028 ng/mL (< 0.028)
[2024-02-02] MEDS ORDERED: cefTRIAXone (ROCEPHIN) 2 GM VIAL ONE (03:45)
[2024-02-02] MEDS ORDERED: Doxycycline 100 MG VIAL ONE (03:45)
[2024-02-02] MEDS ORDERED: Ondansetron PF 4 MG/2 ML Vial IVP PRN (04:35)
[2024-02-02 05:24] LABS: pH (venous) 7.197 (7.32-7.43)
[2024-02-02 06:23] LABS: Iron 12 ug/dL (65-175); Iron Binding Capacity, Total 378 mcg/dL (261-462)
[2024-02-02 06:29] VITALS: BMI 23.3
[2024-02-02] MEDS: Ipratropium/Albuterol 3 ML NEB NEB SCH (06:42)
[2024-02-02 07:07] LABS: Actual Bicarbonate (HCO3a) 20.9 mEq/L (22-28); Base Excess (BEa) -3.4 mEq/L (-2.0 to +3.0); CO2 Tension 33.9 mmHg (35.0-45.0); Calcium, Ionized (arterial) 1.12 mmol/L (1.12-1.30); Carboxyhemoglobin (COHb) 2.1 gm% (0.0-3.0); Hematocrit-ABG 22 % (42.0-52.0); Hemoglobin (Hb) 7.6 g/dL (14.0-18.0); O2 Tension (PaO2), arterial 156.5 mmHg (> 70.0); Potassium - ABG Lab 3.79 mmol/L (3.70-5.30); Puncture Site Left Radial artery; pH, Arterial 7.407 (7.35-7.45)
[2024-02-02 07:08] LABS: ALV-art Gradient 86.325 mmHg (0-20)
[2024-02-02] MEDS: methylPREDNISolone Sod Succ 40 MG VIAL IVP SCH (07:24)
[2024-02-02 08:12] LABS: #Basophils 0.03 10x3/uL (0.0-0.2); #Eosinophils Less than 0.03 10x3/uL (0.0-0.7); %Basophils 0.3 % (0.0-1.0); %Eosinophils 0.2 % (0.0-10.0); %Lymphocytes 10.9 % (21.0-51.0); %Monocytes 6.9 % (0.0-10.0); %Neutrophils 81.2 % (42.0-75.0); Hematocrit 25.6 % (42.0-52.0); Hemoglobin 7.2 g/dL (14.0-18.0); Mean Corpuscular HGB CONC 28.1 g/dL (32.0-36.0); Mean Corpuscular Hemoglobin 19.1 pg (27.0-31.0); Mean Corpuscular Volume 67.9 fL (78.0-98.0); Mean Platelet Volume 10.5 fL (7.4-10.4); Platelet Count 264 10x3/uL (130-400); RBC Distribution Width 17.8 % (11.5-14.5); Red Blood Cell (RBC) Count 3.77 mill/uL (4.70-6.10)
[2024-02-02 08:22] LABS: INR-International Normal Ratio 1.1; Prothrombin Time 13.8 sec (12.0-14.7)
[2024-02-02 08:23] LABS: PTT 22.8 sec (22.9-36.1)
[2024-02-02] MEDS: Multivitamin W/ Minerals 1 TAB PO SCH (08:31)
[2024-02-02] MEDS: Folic Acid 1 MG TAB PO SCH (08:31)
[2024-02-02] MEDS: Thiamine 100 MG TAB PO SCH (08:31)
[2024-02-02] MEDS: Pantoprazole DR 40 MG TAB PO SCH (08:31)
[2024-02-02] MEDS: Losartan 25 MG TAB PO SCH (08:32)
[2024-02-02] MEDS: Enoxaparin 40 MG (0.4 mL) SYRINGE SC SCH (08:32)
[2024-02-02 08:49] LABS: Amphetamine Not Detected (NotDetected); Barbiturates Screen Not Detected (NotDetected); Benzodiazepine Screen Not Detected (NotDetected); Cocaine Metabolite Screen Detected (NotDetected); Methadone Not Detected (NotDetected); Methamphetamine Not Detected (NotDetected); Opiate Screen Not Detected (NotDetected); Oxycodone Screen Not Detected (NotDetected); Phencyclidine (PCP) Not Detected (NotDetected); THC/Cannabinoid Screen Not Detected (NotDetected); Tricyclic Screen Not Detected (NotDetected)
[2024-02-02 08:55] LABS: Burr Cells SLIGHT = 2-5 cells HPF (0-1); Hypochromia MODERATE=16-30 cells HPF (0-5); Microcytosis MODERATE=15-30 cells HPF (0-5); Ovalocytes SLIGHT = 2-5 cells HPF (0-1); Platelet Adequacy Comment Platelets Normal; Polychromasia SLIGHT = 2-3 cells HPF (0-2); Schistocytes SLIGHT = 2-5 cells HPF (0-1)
[2024-02-02] MEDS: Sodium Ferric Gluconate 250 MG in Sodium Chloride 0.9% 250 ML 250 ML IVPB SCH (10:22)
[2024-02-02] MEDS: Acetaminophen 500 MG TAB PO SCH (10:23)
[2024-02-02] MEDS: Furosemide 20 MG (2 mL) VIAL SLOW IVP SCH (13:55)
[2024-02-02] MEDS: cefTRIAXone\\ROCEPHIN 1 GM in Sodium Chloride 0.9% 100 ML IVPB SCH (14:53)
[2024-02-02] MEDS ORDERED: Doxycycline 100 MG in Sodium Chloride 0.9% 100 ML IVPB SCH (16:00)
[2024-02-02] MEDS: Doxycycline 100 MG CAP PO SCH (19:57)
[2024-02-03 05:31] LABS: Anion Gap 12 mmol/L (10-20); BUN (Urea Nitrogen) 15 mg/dL (8.4-25.7); Calc. Creatinine Clearance 69 mL/min (70-130); Calcium 8.7 mg/dL (7.8-10.44); Carbon Dioxide 21 mmol/L (23-31); Chloride 109 mmol/L (98-107); Estimated GFR 78; Glucose 135 mg/dL (83-110); Potassium 3.8 mmol/L (3.5-5.1); Sodium 138 mmol/L (136-145)
[2024-02-03 05:54] LABS: Anisocytosis MARKED = >30 cells HPF (0-5); Band 1 % (5-11); Burr Cells MODERATE= 6-15 cells HPF (0-1); Hematocrit 23.3 % (42.0-52.0); Hemoglobin 6.6 g/dL (14.0-18.0); Hypochromia MODERATE=16-30 cells HPF (0-5); Large Platelets 14.4 % (0-5); Lymphocytes 6 % (21-51); Macrocytosis SLIGHT = 6-15 cells HPF (0-5); Mean Corpuscular HGB CONC 28.3 g/dL (32.0-36.0); Mean Corpuscular Volume 67.1 fL (78.0-98.0); Mean Platelet Volume 10.3 fL (7.4-10.4); Microcytosis SLIGHT = 6-15 cells HPF (0-5); Monocytes 3 % (0-10); Neutrophil 90 % (42-75); Ovalocytes MODERATE= 6-15 cells HPF (0-1); Platelet Adequacy Comment Platelets Normal; Platelet Count 275 10x3/uL (130-400); Poikilocytosis SLIGHT = 6-15 cells HPF (0-5); Polychromasia SLIGHT = 2-3 cells HPF (0-2); Red Blood Cell (RBC) Count 3.47 mill/uL (4.70-6.10); Target Cells SLIGHT = 2-5 cells HPF (0-1)
[2024-02-03 06:35] LABS: Vitamin D, 25 Hydroxy 8.2 ng/ml (> 30.0)
[2024-02-03] MEDS: Aspirin 81 mg Enteric Coated Tablet PO SCH (08:07)
[2024-02-03] MEDS: Cyanocobalamin (Vitamin B-12) 1,000 MCG TAB PO SCH (08:07)
[2024-02-03] MEDS: predniSONE 50 MG TAB PO SCH (08:07)
[2024-02-03] MEDS: Cholecalciferol 1,000 UNITS (25 MCG) TAB PO SCH (08:08)
[2024-02-03] MEDS ORDERED: Cholecalciferol (Vitamin D3) 400 UNITS TAB PO SCH (09:00)
[2024-02-03] MEDS ORDERED: Cyanocobalamin 1000 MCG/ML VIAL IM SCH (12:00)
[2024-02-03 13:16] VITALS: BMI 22.6
[2024-02-03 16:59] LABS: Hematocrit 28.2 % (42.0-52.0); Hemoglobin 8.3 g/dL (14.0-18.0)
[2024-02-03] MEDS: Nicotine 14 MG PATCH TD SCH (20:46)
[2024-02-04 07:19] LABS: Anion Gap 13 mmol/L (10-20); BUN (Urea Nitrogen) 20 mg/dL (8.4-25.7); Calc. Creatinine Clearance 75 mL/min (70-130); Calcium 8.7 mg/dL (7.8-10.44); Carbon Dioxide 21 mmol/L (23-31); Chloride 108 mmol/L (98-107); Estimated GFR 88; Glucose 104 mg/dL (83-110); Potassium 3.3 mmol/L (3.5-5.1); Sodium 139 mmol/L (136-145)
[2024-02-04 07:41] LABS: #Basophils 0.06 10x3/uL (0.0-0.2); #Eosinophils Less than 0.03 10x3/uL (0.0-0.7); %Basophils 0.3 % (0.0-1.0); %Eosinophils 0.1 % (0.0-10.0); %Lymphocytes 16.7 % (21.0-51.0); %Monocytes 6.6 % (0.0-10.0); %Neutrophils 73.9 % (42.0-75.0); Hematocrit 27.6 % (42.0-52.0); Hemoglobin 8.1 g/dL (14.0-18.0); Mean Corpuscular HGB CONC 29.3 g/dL (32.0-36.0); Mean Corpuscular Hemoglobin 20.2 pg (27.0-31.0); Mean Corpuscular Volume 68.8 fL (78.0-98.0); Mean Platelet Volume 11.2 fL (7.4-10.4); Platelet Count 321 10x3/uL (130-400); RBC Distribution Width 19.9 % (11.5-14.5); Red Blood Cell (RBC) Count 4.01 mill/uL (4.70-6.10)
[2024-02-04] MEDS: Acetaminophen 325 MG TAB PO PRN (09:08)
[2024-02-04] MEDS: Nicotine 14 MG PATCH TD SCH (09:11)
[2024-02-04] MEDS: Potassium Chloride 20 MEQ TAB PO SCH (10:31)
[2024-02-04] MEDS ORDERED: PHENYLEPHRINE-NS 100 MCG/ML 10 ML SYRINGE ONE (13:01)
[2024-02-04] MEDS ORDERED: Lidocaine 2% PF 5 ML VIAL ONE (13:01)
[2024-02-04] MEDS ORDERED: PROPOFOL 20 ML ONE (13:01)
[2024-02-05] MEDS: Furosemide 20 MG TAB PO SCH (08:38)
[2024-02-05] MEDS: Ergocalciferol 1.25 MG(50,000 UNITS) CAP PO SCH (10:57)
[2024-02-05] MEDS: Potassium Chloride 20 MEQ TAB PO SCH (10:57)
[2024-02-05 13:56] VITALS: BP 137/63; TEMP 97.4
== END 2024-02-05 13:38 | disposition home or self-care (01) | DRG 291 ==
LOC: ERS 02:16 → CCU 05:43 → T4-A 16:49
PROVIDERS: ADMIT Internal Medicine; ATTEND Hospitalist
PROC: 4A033R1 Measurement of Arterial Saturation, Peripheral, Percutaneous Approach (ICD-10-PCS; 2024-02-02)
PROC: 30233N1 Transfusion of Nonautologous Red Blood Cells into Peripheral Vein, Percutaneous Approach (ICD-10-PCS; 2024-02-03)
PROC: 0W3P8ZZ Control Bleeding in Gastrointestinal Tract, Via Natural or Artificial Opening Endoscopic (ICD-10-PCS; principal; 2024-02-04)
DX: I11.0 Hypertensive heart disease with heart failure (principal); I50.43 Acute on chronic combined systolic (congestive) and diastolic (congestive) heart failure; J96.01 Acute respiratory failure with hypoxia; J96.02 Acute respiratory failure with hypercapnia; K31.811 Angiodysplasia of stomach and duodenum with bleeding; J44.1 Chronic obstructive pulmonary disease with (acute) exacerbation; E87.4 Mixed disorder of acid-base balance; E78.5 Hyperlipidemia, unspecified; E11.51 Type 2 diabetes mellitus with diabetic peripheral angiopathy without gangrene; I25.10 Atherosclerotic heart disease of native coronary artery without angina pectoris; F17.210 Nicotine dependence, cigarettes, uncomplicated; F14.10 Cocaine abuse, uncomplicated; I16.0 Hypertensive urgency; F10.20 Alcohol dependence, uncomplicated; D50.9 Iron deficiency anemia, unspecified; Z91.041 Radiographic dye allergy status; Z71.51 Drug abuse counseling and surveillance of drug abuser; Z86.718 Personal history of other venous thrombosis and embolism; Z71.6 Tobacco abuse counseling
CPT/HCPCS: 36415; 36416; 36430; 36600; 71045; 80048; 80053; 80306; 82306; 82607; 82728; 82805; 83540; 83550; 83605; 83880; 84145; 84484; 85025; 85610; 85730; 86850; 86900; 86901; 87633; 87798; 93005; 94640; 94660; 94760; 96365; 96366; 96375; 97139; J0696; J1650; J1940; J2704; J2916; J2919; J7050; J7512; J7620; P9016

== ENCOUNTER 2024-04-02 00:53 | Inpatient (IN) | payer OTHER, MEDICAID ==
[2024-04-02] MEDS ORDERED: Nitroglycerin 50 MG/250 ML BOT 250 ML ONE (00:58)
[2024-04-02 01:25] LABS: Actual Bicarbonate (HCO3v) 21.1 mEq/L (22-28); Base Excess -7.3 mEq/L (-2.0 to +3.0); Calcium, Ionized (venous) 1.11 mmol/L (1.16-1.32); Chloride (VBG) 103 mmol/L (98-106); Hematocrit-VBG 33 % (42.0-52.0); Hemoglobin (Hb) 11.3 g/dL (12.6-17.4); Potassium (VBG) 4.02 mmol/L (3.70-5.30); Sodium 136 mmol/L (133-146)
[2024-04-02 01:26] LABS: #Basophils 0.03 10x3/uL (0.0-0.2); %Basophils 0.2 % (0.0-1.0); %Eosinophils 1.5 % (0.0-10.0); %Lymphocytes 9.5 % (21.0-51.0); %Monocytes 2.5 % (0.0-10.0); %Neutrophils 85.5 % (42.0-75.0); Hematocrit 31.7 % (42.0-52.0); Hemoglobin 9.2 g/dL (14.0-18.0); Mean Corpuscular Hemoglobin 22.3 pg (27.0-31.0); Mean Corpuscular Volume 76.8 fL (78.0-98.0); Mean Platelet Volume 10.5 fL (7.4-10.4); Platelet Count 363 10x3/uL (130-400); RBC Distribution Width 24.3 % (11.5-14.5); Red Blood Cell (RBC) Count 4.13 mill/uL (4.70-6.10)
[2024-04-02 01:26] LABS: pH (venous) 7.188 (7.32-7.43)
[2024-04-02 01:42] LABS: ALT (SGPT) 12 U/L (8-55); AST (SGOT) 20 U/L (5-34); Alkaline Phosphatase 91 U/L (40-110); Anion Gap 15 mmol/L (10-20); BUN (Urea Nitrogen) 12 mg/dL (8.4-25.7); Bilirubin, Total 0.3 mg/dL (0.2-1.2); Calc. Creatinine Clearance 0 mL/min (70-130); Calcium 8.3 mg/dL (7.8-10.44); Carbon Dioxide 19 mmol/L (23-31); Chloride 107 mmol/L (98-107); Estimated GFR 65; Globulin 4.3 g/dL (2.4-3.5); Glucose 238 mg/dL (83-110); Potassium 4.2 mmol/L (3.5-5.1); Protein, Total 7.3 g/dL (5.8-8.1); Sodium 137 mmol/L (136-145)
[2024-04-02 01:47] LABS: Troponin I 0.038 ng/mL (< 0.028)
[2024-04-02 01:50] LABS: Actual Bicarbonate (HCO3a) 19.1 mEq/L (22-28); Analyzer IN Cardio ER; Base Excess (BEa) -5.5 mEq/L (-2.0 to +3.0); CO2 Tension 33.6 mmHg (35.0-45.0); Calcium, Ionized (arterial) 1.18 mmol/L (1.12-1.30); Carboxyhemoglobin (COHb) 1.5 gm% (0.0-3.0); Hematocrit-ABG 29 % (42.0-52.0); Hemoglobin (Hb) 9.9 g/dL (14.0-18.0); Potassium - ABG Lab 3.91 mmol/L (3.70-5.30); pH, Arterial 7.372 (7.35-7.45)
[2024-04-02 01:56] LABS: Puncture Site Left Brachial artery
[2024-04-02] MEDS ORDERED: Senokot S 8.6-50 MG TAB PO PRN (02:41)
[2024-04-02] MEDS ORDERED: Acetaminophen 325 MG TAB PO PRN (02:41)
[2024-04-02] MEDS ORDERED: Furosemide 40 MG (4 mL) VIAL ONE (02:41)
[2024-04-02] MEDS ORDERED: Ondansetron PF 4 MG/2 ML Vial IVP PRN (02:41)
[2024-04-02] MEDS ORDERED: Nitroglycerin 50 MG/250 ML BOT 250 ML IVPB SCH (03:00)
[2024-04-02 03:38] LABS: #Basophils 0.03 10x3/uL (0.0-0.2); %Basophils 0.2 % (0.0-1.0); %Eosinophils 0.2 % (0.0-10.0); %Lymphocytes 5.7 % (21.0-51.0); %Neutrophils 89.3 % (42.0-75.0); Hematocrit 32.2 % (42.0-52.0); Hemoglobin 9.3 g/dL (14.0-18.0); Mean Corpuscular HGB CONC 28.9 g/dL (32.0-36.0); Mean Corpuscular Hemoglobin 22.5 pg (27.0-31.0); Mean Corpuscular Volume 77.8 fL (78.0-98.0); Mean Platelet Volume 10.5 fL (7.4-10.4); Platelet Count 365 10x3/uL (130-400); RBC Distribution Width 24.7 % (11.5-14.5); Red Blood Cell (RBC) Count 4.14 mill/uL (4.70-6.10)
[2024-04-02] MEDS ORDERED: Glucagon 1 MG/ML KIT IM PRN (03:38)
[2024-04-02] MEDS ORDERED: Dextrose 50% Abboject 50 ML SYRINGE SLOW IVP PRN (03:38)
[2024-04-02] MEDS ORDERED: Insulin Lispro 100 UNIT/ML 10 ML VIAL SC PRN ×2 (03:38)
[2024-04-02] MEDS ORDERED: Dextrose 5% in Water 1,000 ML IV PRN (03:38)
[2024-04-02 03:48] LABS: ALT (SGPT) 12 U/L (8-55); AST (SGOT) 20 U/L (5-34); Albumin 3.2 g/dL (3.4-4.8); Alkaline Phosphatase 95 U/L (40-110); Anion Gap 16 mmol/L (10-20); BUN (Urea Nitrogen) 13 mg/dL (8.4-25.7); Bilirubin, Total 0.3 mg/dL (0.2-1.2); Calc. Creatinine Clearance 0 mL/min (70-130); Calcium 8.7 mg/dL (7.8-10.44); Carbon Dioxide 18 mmol/L (23-31); Chloride 110 mmol/L (98-107); Estimated GFR 69; Globulin 4.5 g/dL (2.4-3.5); Glucose 98 mg/dL (83-110); Magnesium 1.8 mg/dL (1.6-2.6); Potassium 4.8 mmol/L (3.5-5.1); Protein, Total 7.7 g/dL (5.8-8.1); Sodium 139 mmol/L (136-145)
[2024-04-02] MEDS ORDERED: hydrALAZINE 20 MG/ML VIAL SLOW IVP PRN (04:53)
[2024-04-02 05:20] VITALS: BMI 23.1
[2024-04-02] MEDS: Furosemide 40 MG (4 mL) VIAL SLOW IVP SCH (05:47)
[2024-04-02 06:33] LABS: Amphetamine Not Detected (NotDetected); Barbiturates Screen Not Detected (NotDetected); Benzodiazepine Screen Not Detected (NotDetected); Cocaine Metabolite Screen Detected (NotDetected); Methadone Not Detected (NotDetected); Methamphetamine Not Detected (NotDetected); Opiate Screen Not Detected (NotDetected); Oxycodone Screen Not Detected (NotDetected); Phencyclidine (PCP) Not Detected (NotDetected); THC/Cannabinoid Screen Not Detected (NotDetected); Tricyclic Screen Not Detected (NotDetected)
[2024-04-02] MEDS: Ipratropium/Albuterol 3 ML NEB NEB SCH (06:47)
[2024-04-02 07:57] LABS: Troponin I 0.163 ng/mL (< 0.028)
[2024-04-02] MEDS ORDERED: methylPREDNISolone Sod Succ 40 MG VIAL IVP SCH (09:00)
[2024-04-02] MEDS: Metoprolol Succinate XL 25 MG ER.TAB PO SCH (09:55)
[2024-04-02] MEDS: Multivitamin W/ Minerals 1 TAB PO SCH (09:55)
[2024-04-02] MEDS: Doxycycline 100 MG CAP PO SCH (09:56)
[2024-04-02] MEDS: Losartan 25 MG TAB PO SCH (09:56)
[2024-04-02] MEDS: Atorvastatin Calcium 20 MG TAB PO SCH (09:56)
[2024-04-02] MEDS: Aspirin 81 mg Enteric Coated Tablet PO SCH (09:56)
[2024-04-02] MEDS: Folic Acid 1 MG TAB PO SCH (09:56)
[2024-04-02] MEDS: Thiamine 100 MG TAB PO SCH (09:57)
[2024-04-02] MEDS: Nicotine 21 MG PATCH TD SCH (09:57)
[2024-04-02] MEDS: Enoxaparin 40 MG (0.4 mL) SYRINGE SC SCH (09:58)
[2024-04-02] MEDS: methylPREDNISolone Sod Succ 40 MG VIAL IVP SCH (09:58)
[2024-04-02] MEDS: Pantoprazole 40 MG DR.TAB PO SCH (10:05)
[2024-04-02 10:19] LABS: ALT (SGPT) 11 U/L (8-55); AST (SGOT) 14 U/L (5-34); Albumin 3.3 g/dL (3.4-4.8); Alkaline Phosphatase 92 U/L (40-110); Anion Gap 15 mmol/L (10-20); BUN (Urea Nitrogen) 16 mg/dL (8.4-25.7); Bilirubin, Total 0.2 mg/dL (0.2-1.2); Calc. Creatinine Clearance 64 mL/min (70-130); Calcium 8.9 mg/dL (7.8-10.44); Carbon Dioxide 21 mmol/L (23-31); Chloride 108 mmol/L (98-107); Estimated GFR 69; Globulin 4.4 g/dL (2.4-3.5); Glucose 153 mg/dL (83-110); Potassium 3.7 mmol/L (3.5-5.1); Protein, Total 7.7 g/dL (5.8-8.1); Sodium 140 mmol/L (136-145)
[2024-04-02 10:26] LABS: #Basophils 0.04 10x3/uL (0.0-0.2); %Basophils 0.3 % (0.0-1.0); %Eosinophils 0.6 % (0.0-10.0); %Lymphocytes 12.3 % (21.0-51.0); %Neutrophils 82.5 % (42.0-75.0); Hematocrit 30.8 % (42.0-52.0); Hemoglobin 9.3 g/dL (14.0-18.0); Mean Corpuscular HGB CONC 30.2 g/dL (32.0-36.0); Mean Corpuscular Hemoglobin 22.6 pg (27.0-31.0); Mean Corpuscular Volume 74.8 fL (78.0-98.0); Mean Platelet Volume 10.1 fL (7.4-10.4); Platelet Count 358 10x3/uL (130-400); RBC Distribution Width 24.5 % (11.5-14.5); Red Blood Cell (RBC) Count 4.12 mill/uL (4.70-6.10)
[2024-04-02] MEDS ORDERED: Melatonin 3 MG TAB PO PRN (20:08)
[2024-04-02] MEDS: Calcium Carbonate 500 MG ChewTAB PO PRN (20:10)
[2024-04-03 04:34] LABS: Hemoglobin A1c 5.5 % (4.0-6.0)
[2024-04-03] MEDS: Zolpidem Tartrate 5 MG TAB PO SCH (20:55)
[2024-04-04 04:33] LABS: Anion Gap 12 mmol/L (10-20); BUN (Urea Nitrogen) 20 mg/dL (8.4-25.7); Calc. Creatinine Clearance 65 mL/min (70-130); Calcium 8.9 mg/dL (7.8-10.44); Carbon Dioxide 22 mmol/L (23-31); Chloride 105 mmol/L (98-107); Estimated GFR 75; Glucose 137 mg/dL (83-110); Magnesium 1.7 mg/dL (1.6-2.6); Sodium 135 mmol/L (136-145)
[2024-04-04] MEDS: Folic Acid 1 MG TAB PO SCH (11:02)
[2024-04-04] MEDS: Furosemide 40 MG (4 mL) VIAL SLOW IVP SCH (11:03)
[2024-04-04] MEDS: Multivitamin W/ Minerals 1 TAB PO SCH (11:04)
[2024-04-04 11:37] VITALS: BP 145/68
[2024-04-04 12:40] VITALS: TEMP 97.9
[2024-04-05] MEDS ORDERED: FLU (Fluad Triv) TS24-25 (65UP)/MF59C/PF 45 MCG/0.5 ML Syringe IM ONE (09:00)
== END 2024-04-04 17:40 | disposition home or self-care (01) | DRG 280 ==
LOC: SUATTDRO 00:53 → ERS 00:53 → CCU 02:39 → 2NO 16:15
PROVIDERS: ADMIT Internal Medicine; ATTEND Internal Medicine
PROC: 4A033R1 Measurement of Arterial Saturation, Peripheral, Percutaneous Approach (ICD-10-PCS; principal; 2024-04-02)
PROC: 5A09357 Assistance with Respiratory Ventilation, Less than 24 Consecutive Hours, Continuous Positive Airway Pressure (ICD-10-PCS; 2024-04-02)
DX: I13.0 Hypertensive heart and chronic kidney disease with heart failure and stage 1 through stage 4 chronic kidney disease, or unspecified chronic kidney disease (principal); I50.43 Acute on chronic combined systolic (congestive) and diastolic (congestive) heart failure; I21.A1 Myocardial infarction type 2; J96.01 Acute respiratory failure with hypoxia; J44.1 Chronic obstructive pulmonary disease with (acute) exacerbation; E78.5 Hyperlipidemia, unspecified; F17.210 Nicotine dependence, cigarettes, uncomplicated; D64.9 Anemia, unspecified; F10.10 Alcohol abuse, uncomplicated; I25.10 Atherosclerotic heart disease of native coronary artery without angina pectoris; D72.829 Elevated white blood cell count, unspecified; N18.9 Chronic kidney disease, unspecified; E11.65 Type 2 diabetes mellitus with hyperglycemia; E11.22 Type 2 diabetes mellitus with diabetic chronic kidney disease; Z71.6 Tobacco abuse counseling; Z91.041 Radiographic dye allergy status; I16.0 Hypertensive urgency; Z86.718 Personal history of other venous thrombosis and embolism
CPT/HCPCS: 36415; 36416; 36600; 71045; 80048; 80053; 80306; 82805; 83036; 83735; 83880; 84145; 84484; 85025; 93005; 93798; 94640; 94660; 94760; 96374; 96375; J1650; J1940; J2919; J7620